=== PATIENT | male | born 1945 | race Caucasian/White ===

== ENCOUNTER → 2020-06-23 11:42 | Outpatient (BNVA) | payer OTHER, SELFPAY | PROVIDERS: PCP Emergency Medicine Emergency Medical Services; Visit Provider Surgery | DX: Z11.59 Encounter for screening for other viral diseases (principal); D50.9 Iron deficiency anemia, unspecified; Z86.010 Personal history of colon polyps | CPT/HCPCS: 87635 ==

== ENCOUNTER 2020-06-29 06:19 | Day surgery (SDC) | payer OTHER, SELFPAY ==
[2020-06-28 09:09] VITALS: BMI 29.4
--- NOTE | 2020-06-29 06:36 | W.PM.OPSUD ---
Surgery/Procedure H&P Update DATE OF PROCEDURE: June 29, 2020 DATE H&P PERFORMED: 06/14/20 H&P UPDATE INFORMATION: I have reviewed H&P completed within last 30 days, I have examined patient prior to procedure and No changes to prior documentation PREOP DIAGNOSIS: Iron deficiency anemia PRIMARY INDICATION FOR PROCEDURE: The same PLANNED PROCEDURE: Operation Date: 06/29/20 07:00 Proposed Procedures p EGD 21265 [id number] D50.9 Z86.010(Not Applicable) - Kurt Jackson MD s Colonoscopy(Not Applicable) - Kurt Jackson MD
[2020-06-29 06:40] VITALS: BP 146/77; PULSE 87; RESP 18; TEMP 36.6; O2SAT 99
[2020-06-29 06:46] LABS: Glucose Point of Care 81 mg/dL (70-110)
[2020-06-29] MEDS: sodium chloride 0.9% 1,000 ML 30 ML IV (06:47)
--- NOTE | 2020-06-29 06:53 | ANES.PREANE2 ---
Pre-Anesthetic Assessment Pre-Anesthetic Assessment: Height/Weight: Height 1.7 m Weight 85.275 kg Temp Pulse Resp BP Pulse Ox 98 F 87 18 146/77 99 06/29/20 06:40 06/29/20 06:40 06/29/20 06:40 06/29/20 06:40 06/29/20 06:40 Preop Diagnosis: Iron deficiency anemia Proposed Procedure: Operation Date: 06/29/20 07:00 Proposed Procedures p EGD 07672 98291 D50.9 Z86.010(Not Applicable) - Kurt Jackson MD s Colonoscopy(Not Applicable) - Kurt Jackson MD Was Beta Yohannes taken within 24 hours: Yes Last intake: Intake Last Liquid Date 06/28/20 Last Liquid Time 18:00 Last Solid Date 06/27/20 Last Solid Time 18:00 Social: Social History: No alcohol and No tobacco Airway: Submandibular: WNL Cervical ROM: WNL MP: 3 (full amezcua) History/ROS: No significant history except as noted Pulmonary: Pulmonary: Sleep apnea (CPAP) CV/HEM: CV/HEM: CAD (CABG X4 12 years ago) and HTN Comments: denies SOB and denies CP : : None reported Hepatic: Hepatic: None reported GI: GI: GERD (omeprazole) Metabolic: Metabolic: DM and Hyperlipidemia Musc/skel: Musc/skel: None reported Neuropsych: Neuropsych: None reported Anesthetic Plan: ASA status: 2 Anesthesia: Anesthesia Evaluation and MAC Risk of > 500 ml blood loss (7ml/kg in children): No Meds/Allergies Current Medications: Current Medications Generic Name Dose Route Start Last Admin Trade Name Albinq PRN Reason Stop Dose Admin Sodium Chloride 1,000 mls @ 30 ml s/hr 06/29/20 06:00 06/29/20 06:47 Sodium Chloride 0.9% IV 30 mls/hr .Q24H ELISABETH Administration PFSH Anesthesia PFSH: Family History Denies family history of Anesthesia complication Bleeding disorder Social History Smoking and tobacco status: never smoked Alcohol intake: never Data Anesthesia Other Labs: Laboratory Results - last 48 hr 06/29/20 06:39 POC Glucose 81 Cardiac Studies: No Data to Display
[2020-06-29 07:31] VITALS: BP 105/55; PULSE 55; RESP 18; TEMP 36.3; O2SAT 100
[2020-06-29 07:46] VITALS: BP 105/59; RESP 18; O2SAT 98
--- NOTE | 2020-06-29 13:36 | ANE.PACU2 ---
Inpatient post-anesthesia follow up: Airway intact: Yes Vital signs: Temperature 97.3 F Pulse Rate 55 Respiratory Rate 18 Blood Pressure 105/59 Pulse Oximetry 98 Oxygen Delivery Me thod Room Air Oxygen Flow Rate Fraction of Inspir ed Oxygen Hydration adequate: Yes Nausea and vomiting: No Pain level: 2 Mental status: Baseline
== END 2020-06-29 08:00 | disposition home or self-care (01) ==
PROVIDERS: PCP Emergency Medicine Emergency Medical Services; Visit Provider Surgery
PROC: 0DJ08ZZ Inspection of Upper Intestinal Tract, Via Natural or Artificial Opening Endoscopic (ICD-10-PCS; CPT 43235; principal; 2020-06-29 07:00)
PROC: 0DJD8ZZ Inspection of Lower Intestinal Tract, Via Natural or Artificial Opening Endoscopic (ICD-10-PCS; CPT 45378; 2020-06-29 07:00)
DX: D50.9 Iron deficiency anemia, unspecified (principal); K57.30 Diverticulosis of large intestine without perforation or abscess without bleeding; K31.7 Polyp of stomach and duodenum; K29.00 Acute gastritis without bleeding; G47.30 Sleep apnea, unspecified; I25.810 Atherosclerosis of coronary artery bypass graft(s) without angina pectoris; I10 Essential (primary) hypertension; K21.9 Gastro-esophageal reflux disease without esophagitis; E11.9 Type 2 diabetes mellitus without complications; E78.5 Hyperlipidemia, unspecified; Z79.82 Long term (current) use of aspirin; Z79.4 Long term (current) use of insulin
CPT/HCPCS: 12345; 36416; 43251; 45378; 82962; 88305; J2704; J7030

== ENCOUNTER 2021-02-09 08:14 | Inpatient (IN) | payer OTHER, MEDICARE, SELFPAY ==
[2021-02-09] VITALS (24 sets, daily range): BP systolic 95–116; BP diastolic 57–73; PULSE 72–90; RESP 18–29; TEMP 36.6–36.9; O2SAT 92–99; BMI 25.9
--- NOTE | 2021-02-09 08:49 | ECG_ITS ---
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 Measurements Intervals [place] Rate: 86 P: 55 ME: 320 QRS: 59 QRSD: 97 T: 180 QT: 394 QTc: 473 Interpretive Statements SINUS RHYTHM WITH FIRST DEGREE AV BLOCK WITH FREQUENT VENTRICULAR PREMATURE COMPLEXES MARKED ST DEPRESSION, CONSIDER SUBENDOCARDIAL INJURY [0.2+ mV ST DEPRESSION] Diffuse nonspecific ST-T changes Compared to ECG 12/03/2017 12:13:51 Ventricular premature complex(es) now present ST (T wave) deviation now present Sinus tachycardia no longer present T-wave abnormality no longer present Electronically Signed On 02-09-2021 22:51:06 CDT by Artur Orosco M.D. [id number]
--- NOTE | 2021-02-09 08:49 | XR_ITS ---
WS: [id number] Portable AP upright chest, 02/09/2021 Clinical Data: CP Comparison: PA and lateral chest, 12/03/2017. Findings: There is scarring at the left costophrenic angle unchanged. No nodules, masses or effusions are seen. The heart is at the upper limits of normal. No pneumonia or pneumothorax is present. Midli ne sternotomy sutures are present. The aortic arch shows calcification and tortuosity. Monitor leads are on the chest wall. XR/XR chest 1V portable [id number] Impression: 1. Atherosclerosis and cardiomegaly. 2. Unchanged scarring at left costophrenic angle.
--- NOTE | 2021-02-09 08:50 | ED_ITS ---
HPI - Chest Pain General: Chief Complaint: Chest Pain Stated Complaint: N/V WEAKNESS, VERY PALE Time Seen by Provider: 02/09/21 08:46 History of Present Illness: HPI narrative: This patient is a 76-year-old male who presents to the emergency department with complaint of atypical type chest pain issues. Patient has a history of coronary artery disease and had a quadruple bypass 15 years ago. [facility] Patient's daughter and his grandson had argument 3 days ago patient got upset that is when he started having chest pain. Patient states that it is continued and has not relieved. Will do medical evaluation treat as needed complaint: chest pain Pertinent past history: coronary artery disease and CABG Onset (ago): day(s) (3) Timing of current episode: episodic Prior episodes: Yes Associated symptoms: Deny abdominal pain, dyspnea, fever(s), nausea, palpitations or vomiting Review of Systems General: Reports: 10 or more systems reviewed and unremarkable except in HPI and below Const: Denies: fever(s), chills, body aches or fatigue Eyes: Denies: change in vision or blurry vision ENMT: Denies: throat pain, hoarseness or mouth pain Card: Reports: chest pain; Denies: palpitations, irregular heart rhythm, edema, swelling of feet/ankles or lightheadedness Resp: Denies: dyspnea, productive cough, non-productive cough, wheezing or pain on inspiration GI: Denies: abdominal pain, nausea or vomiting : Denies: flank pain, dysuria, urinary frequency, urinary urgency or urinary hesitancy Musc: Denies: neck pain, back pain, extremity pain, extremity swelling, joint pain, joint swelling, joint redness, joint warmth or limited range of motion Skin/Breast: Denies: rash, pruritus, erythema or skin tenderness Neuro: Denies: headache(s), numbness in extremities or weakness in extremities Psych: Denies: anxiety or depression PFSH ED PFSH: Family History Denies family history of Anesthesia complication Bleeding disorder Social History Smoking and tobacco status: never smoked Alcohol intake: never Physical Exam Const: COMMON NORMALS: no acute distress, average body habitus, patient oriented x3, no limitations, healthy appearing, alert and well nourished HENMT: COMMON NORMALS: normocephalic, atraumatic, hearing grossly normal bilaterally, external ears normal, EAC's normal, TM's normal bilaterally, Normal external nose present, Normal nasal mucous membranes and turbinates present, moist oral mucous membranes, oropharynx normal, dentition normal and gingiva normal HEAD & SCALP: normocephalic and atraumatic NOSE: Normal external nose present and Normal nasal mucous membranes and turbinates present EXTERNAL EAR: Yes external ears normal EXTERNAL AUDITORY CANAL: EAC's normal TYMPANIC MEMBRANE: TM's normal bilaterally Neck/C-Spine: COMMON NORMALS: full ROM, no lymphadenopathy, supple, no meningeal signs, no JVD, Thyroid normal and No carotid bruits THYROID: Thyroid normal Chest: COMMONS NORMALS: normal inspection of the chest, normal palpation of entire chest wall, normal inspection of the breasts and normal palpation of the breasts Breast/axilla inspection: Yes normal inspection of the breasts BREAST/AXILLA PALPATION: Yes normal palpation of the breasts Resp: COMMON NORMALS: normal respiratory effort, No retractions, No use of accessory muscles, clear to auscultation bilaterally and percussion normal AUSCULTATION: clear to auscultation bilaterally PERCUSSION: percussion normal Cardio: COMMON NORMALS: no JVD, regular rate, regular rhythm, S1 normal heart sound present, S2 normal heart sound present, No gallops present (Cardio), No clicks present (Cardio), No murmurs present (Cardio), No rub (Cardio) and Peripheral pulses 2+ throughout RATE: regular rate RHYTHM: regular rhythm HEART SOUNDS: S1 normal heart sound present and S2 normal heart sound present PERIPHERAL PULSES: Peripheral pulses 2+ throughout GI: COMMON NORMALS: Normal to inspection, nondistended, normoactive bowel sounds present, Soft to palpation, non-tender, No hepatosplenomegaly present, no masses and no bruits PALPATION: Yes Soft to palpation and Yes No hepatosplenomegaly present : COMMON NORMALS: Yes no CVA tenderness BLADDER/KIDNEY EXAM: Yes no CVA tenderness Back/Pelvis: COMMON NORMALS: no CVA tenderness, thoracic and lumbar spine normal to inspection, no thoracic nor lumbar tenderness, thoraco-lumbar ROM normal and straight leg raise negative bilaterally Extremity: COMMON NORMALS: normal to inspection, full ROM, capillary refill normal, no joint enlargement, no clubbing, cyanosis or edema, no calf tenderness and no pedal edema Neuro: COMMON NORMALS: patient oriented x3 SENSORIUM/ORIENTATION: Yes alert MENINGEAL SIGNS: Yes no meningeal signs Course Reevaluation(s): Reevaluation #1: I did discuss at length with patient and family. They state understanding and agreeable for admission to hospital. Patient states chest pain is improved Time: 10:13 Consultations: Consultation #1: I did discuss leg with Dr. Barry real. She has agreed to see the patient as a consult. We did discuss patient's low platelet count. But she still recommends patient receive heparin. Time: 10:12 Consultation #2: I did discuss at length with Dr. Barnes hospitalist. He is agreed to admit the patient to the hospital he will see patient write additional Time: 10:25 Vital Signs: Vital signs: Vital Signs Temperature 98.5 F 02/09/21 08:34 Pulse Rate 85 02/09/21 10:00 Respiratory Rate 18 02/09/21 10:00 Blood Pressure 108/67 02/09/21 10:00 Pulse Oximetry 96 02/09/21 10:00 MDM - Chest Pain MDM Narrative: Medical decision making narrative: This patient is a 76-year-old male who presents to the emergency department with complaint of atypical type chest pain issues. Patient has a history of coronary artery disease and had a quadruple bypass 15 years ago. [facility] Patient's daughter and his grandson had argument 3 days ago patient got upset that is when he started having chest pain. Patient states that it is continued and has not relieved. I did discuss leg with Dr. Barry real. She has agreed to see the patient as a consult. We did discuss patient's low platelet count. But she still recommends patient receive heparin. I did discuss at length with Dr. Barnes hospitalist. He is agreed to admit the patient to the hospital he will see patient write additional Lab Data: Labs: Lab Results 02/09/21 02/09/21 02/09/21 Range/Units 09:15 09:15 09:15 WBC 10.2 H (4.0-10.0) 10^3/ uL RBC 3.58 L (4.1-5.3) 10^6/u L Hgb 11.0 L (11.7-16.6) g/dL Hct 34.2 L (42.0-52.0) % MCV 95.5 H (80-94) fL MCH 30.7 (28.0-34.0) pg MCHC 32.2 (30.0-36.0) g/dL RDW 13.0 (12.1-15.1) % Plt Count 56 L (130-400) 10^3/c mm MPV 12.9 H (7.4-10.4) fL Neut % (Auto) 93.4 % Lymph % (Auto) 4.4 % [place] % (Auto) 1.9 % Eos % (Auto) 0.0 % Baso % (Auto) 0.2 % Neut # (Auto) 9.50 H (1.8-7.7) 10^3/u L Lymph # (Auto) 0.5 L (0.8-4.8) 10^3/u L [place] # (Auto) 0.2 (0.2-0.9) 10^3/u L Eos # (Auto) 0.0 (0.0-0.8) 10^3/u L Baso # (Auto) 0.0 (0.0-0.1) 10^3/u L Nucleated RBC % (a uto) 0 % Nucleated RBCs # 0.0 /100WBC PT (12.1-14.9) SECO NDS INR (0.8-1.2) APTT (23.9-36.7) SECO NDS Sodium 137 (136-145) mmol/L Potassium 4.9 (3.5-5.1) mmol/L Chloride 100 (98-107) mmol/L Carbon Dioxide 16 L (22-29) mmol/L Anion Gap 25.9 H (5-19) BUN 36 H (8-23) mg/dL Creatinine 1.3 H (0.7-1.2) mg/dL GFR Calculation Not Reportable Glucose 345 H (65-115) mg/dL Calculated Osmolal ity 306 H (285-295) mOsm/k g Calcium 9.1 (8.5-10.5) mg/dL Total Bilirubin 0.3 (0.15-1.2) mg/dL AST 42 H (0-40) U/L ALT 13 (0-41) U/L Alkaline Phosphata se 54 (40-130) IU/L Troponin T Baselin e 652 H* (0-15) ng/L NT-Pro-B Natriuret Pep 2849 H (0-450) pg/mL Total Protein 6.6 (6.6-8.7) g/dL Albumin 4.4 (3.5-5.2) g/dL Globulin 2.2 (1.3-4.6) g/dL 02/09/21 Range/Units 09:35 WBC (4.0-10.0) 10^3/ uL RBC (4.1-5.3) 10^6/u L Hgb (11.7-16.6) g/dL Hct (42.0-52.0) % MCV (80-94) fL MCH (28.0-34.0) pg MCHC (30.0-36.0) g/dL RDW (12.1-15.1) % Plt Count (130-400) 10^3/c mm MPV (7.4-10.4) fL Neut % (Auto) % Lymph % (Auto) % [place] % (Auto) % Eos % (Auto) % Baso % (Auto) % Neut # (Auto) (1.8-7.7) 10^3/u L Lymph # (Auto) (0.8-4.8) 10^3/u L [place] # (Auto) (0.2-0.9) 10^3/u L Eos # (Auto) (0.0-0.8) 10^3/u L Baso # (Auto) (0.0-0.1) 10^3/u L Nucleated RBC % (a uto) % Nucleated RBCs # /100WBC PT 13.90 (12.1-14.9) SECO NDS INR 1.04 (0.8-1.2) APTT 31.5 (23.9-36.7) SECO NDS Sodium (136-145) mmol/L Potassium (3.5-5.1) mmol/L Chloride (98-107) mmol/L Carbon Dioxide (22-29) mmol/L Anion Gap (5-19) BUN (8-23) mg/dL Creatinine (0.7-1.2) mg/dL GFR Calculation Glucose (65-115) mg/dL Calculated Osmolal ity (285-295) mOsm/k g Calcium (8.5-10.5) mg/dL Total Bilirubin (0.15-1.2) mg/dL AST (0-40) U/L ALT (0-41) U/L Alkaline Phosphata se (40-130) IU/L Troponin T Baselin e (0-15) ng/L NT-Pro-B Natriuret Pep (0-450) pg/mL Total Protein (6.6-8.7) g/dL Albumin (3.5-5.2) g/dL Globulin (1.3-4.6) g/dL Imaging Data^: CXR: Attestation: I personally reviewed and interpreted this imaging study as follows: Radiologist's impression: Impression: 1. Atherosclerosis and cardiomegaly. 2. Unchanged scarring at left costophrenic angle. EKG Data^: EKG 1: Attestation: I personally reviewed and interpreted this EKG as follows: EKG interpretation date: 02/09/21 EKG interpretation time: 08:54 Prior EKG tracings: not available for review Ischemic changes: non-specific ST-T wave changes Interpretation: Sinus rhythm with a first-degree AV block with PVCs. Nonspecific ST changes. Abnormal EKG heart rate 86 Discharge Plan Discharge Patient Disposition: Admitted As Inpatient Clinical Impression: Non-STEMI (non-ST elevated myocardial infarction), Thrombocytopenia Condition: Stable Coding Level of Care Code ED [employer] Professor for Chg Fwd Exam Comprehensive
[2021-02-09] MEDS: aspirin 81 mg Chew Tablet 324 MG PO (09:19)
[2021-02-09 09:25] LABS: Basophils % 0.2 %; Hematocrit 34.2 % (42.0-52.0); Lymphocytes # 0.5 10^3/uL (0.8-4.8); Lymphocytes % 4.4 %; Mean Corpuscular HGB Conc 32.2 g/dL (30.0-36.0); Mean Corpuscular Hemoglobin 30.7 pg (28.0-34.0); Mean Corpuscular Volume 95.5 fL (80-94); Mean Platelet Volume 12.9 fL (7.4-10.4); Monocytes # 0.2 10^3/uL (0.2-0.9); Monocytes % 1.9 %; Neutrophils % 93.4 %; Nucleated Red Blood Cells % 0 %; Platelet Count 56 10^3/cmm (130-400); Red Blood Count 3.58 10^6/uL (4.1-5.3); White Blood Count 10.2 10^3/uL (4.0-10.0)
--- NOTE | 2021-02-09 09:42 | PC.PHAR ---
pt states his daughter takes care of his medications-pts daughter states the pt use to be on insulin but hasnt been on it for 6 months
[2021-02-09 09:49] LABS: Alanine Aminotransferase 13 U/L (0-41); Albumin Level 4.4 g/dL (3.5-5.2); Alkaline Phosphatase 54 IU/L (40-130); Blood Urea Nitrogen 36 mg/dL (8-23); Calcium 9.1 mg/dL (8.5-10.5); Carbon Dioxide 16 mmol/L (22-29); Chloride 100 mmol/L (98-107); Globulin 2.2 g/dL (1.3-4.6); Glucose 345 mg/dL (65-115); NT Pro B Type Natriuretic Pept 2849 pg/mL (0-450); Osmolality Calculated 306 mOsm/kg (285-295); Sodium 137 mmol/L (136-145); Total Bilirubin 0.3 mg/dL (0.15-1.2); Total Protein 6.6 g/dL (6.6-8.7)
[2021-02-09 09:53] LABS: Creatinine Clr Calc Pharmacy 46.9054
[2021-02-09 09:54] LABS: Anion Gap 25.9 (5-19); Aspartate Amino Transferase 42 U/L (0-40); Potassium 4.9 mmol/L (3.5-5.1)
[2021-02-09 09:58] LABS: INR 1.04 (0.8-1.2)
[2021-02-09 09:59] LABS: Partial Thromboplastin Time 31.5 SECONDS (23.9-36.7)
[2021-02-09 10:05] LABS: Troponin(5th) Baseline 652 ng/L (0-15)
[2021-02-09 10:44] LABS: Basophils % 0.2 %; Hematocrit 34.4 % (42.0-52.0); Hemoglobin 10.8 g/dL (11.7-16.6); Lymphocytes # 0.5 10^3/uL (0.8-4.8); Mean Corpuscular HGB Conc 31.4 g/dL (30.0-36.0); Mean Corpuscular Hemoglobin 30.3 pg (28.0-34.0); Mean Corpuscular Volume 96.6 fL (80-94); Mean Platelet Volume 11.1 fL (7.4-10.4); Monocytes # 0.3 10^3/uL (0.2-0.9); Monocytes % 2.6 %; Neutrophils # 9.29 10^3/uL (1.8-7.7); Neutrophils % 91.9 %; Nucleated Red Blood Cells % 0 %; Platelet Count 205 10^3/cmm (130-400); Red Blood Count 3.56 10^6/uL (4.1-5.3); Red Cell Distribution Width 13.1 % (12.1-15.1); White Blood Count 10.1 10^3/uL (4.0-10.0)
--- NOTE | 2021-02-09 10:49 | ECG_ITS ---
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 Measurements Intervals [place] Rate: 85 P: 42 MA: 338 QRS: 48 QRSD: 116 T: 161 QT: 387 QTc: 461 Interpretive Statements SINUS RHYTHM WITH FIRST DEGREE AV BLOCK MODERATE INTRAVENTRICULAR CONDUCTION DELAY [105+ ms QRS DURATION, 80+ ms Q/S IN V1/V2, NO Q AND 60+ ms R IN I/aVL/V5/V6] ST DEVIATION AND MODERATE T-WAVE ABNORMALITY, CONSIDER Warren- LATERAL ISCHEMIA [-0.1+ mV T WAVE IN I/aVL/V5/V6] Compared to ECG 02/09/2021 08:54:13 Intraventricular conduction delay now present T-wave abnormality now present Possible ischemia now present Ventricular premature complex(es) no longer present ST (T wave) deviation no longer present Electronically Signed On 02-09-2021 23:01:45 CDT by Artur Orosco M.D. [id number]
[2021-02-09 11:13] LABS: Troponin 5 2HR 931.1 ng/L (0-15); Troponin 5 2HR Delta 279.1 ABS# (0-10)
[2021-02-09] MEDS: heparin 5,000 unit/mL INJ 1 mL 4000 UNIT IVP (11:51)
--- NOTE | 2021-02-09 12:35 | P.CONIM_ITS ---
Providers/Reason For Consult Consulting Physician/Specialty*: Dr. Reddy, cardiology Reason for Consult*: Non-ST elevation [place] Requesting Physician: Dr. Holguin Primary Care Provider: Huan De La Rosa DO History of Present Illness History of Present Illness Milo Echeverira is a 76 year old male past medical history of CAD s/p CABG x4 about 16 years ago, history of right carotid endarterectomy by Dr. Keller in 12/2017, left proximal internal carotid artery stenosis about 54% (10 October 2017 ), hypertension, diabetes mellitus, gastritis and gastric polyps and diverticulosis on EGD and colonoscopy done in June 2020. He presented with complaints of chest discomfort. Patient is accompanied by his daughter and apparently there was an argument between his daughter and his grandson 2 to 3 days back and since then patient has been having chest discomfort on and off. On further que stioning he does tell me that even prior to that he was having some minor episodes of chest pain but in the last 2 days these episodes have really worsened. He complains of nausea with multiple episodes of vomiting last night. Pain is retrosternal to epigastric in location, dull in nature without any significant radiation. He was short of breath at the time of the event. On arrival to the ER WBC 10.2, hemoglobin 11 and platelets 56--> 205 on recheck. BUN 36, creatinine 1.3, potassium 4.9. Baseline troponin T of 652 which increased at 2 hours to 931. NT proBNP of 2849. EKG showed sinus rhythm with 1st degree AV block with frequent PVC's. ST depression and T wave inversion/biphasic T wave noted in I, aVL, II, III, aVF, V2-V6. Review of Systems General: Reports: 10 or more systems reviewed and unremarkable except in HPI and below Const: Denies: fever(s), chills, body aches or fatigue Eyes: Denies: change in vision ENMT: Denies: change in hearing or epistaxis Card: Reports: chest pain; Denies: palpitations, irregular heart rhythm, edema, swelling of feet/ankles or lightheadedness Resp: Denies: dyspnea, productive cough, non-productive cough, wheezing or pain on inspiration GI: Denies: abdominal pain, nausea, vomiting, hematochezia or melena : Denies: dysuria, urinary frequency or hematuria Musc: Denies: back pain, extremity pain or extremity swelling Skin/Breast: Denies: rash, pruritus, erythema or skin tenderness Neuro: Denies: headache(s), numbness in extremities or weakness in extremities Psych: Denies: anxiety or depression Omar/Lymph: Denies: petechiae or purpura Meds/Allergies Home Medications and Allergies Home Medications Medication Instructions Recorded Confirmed Last Taken Type amlodipine 10 mg tablet 10 mg PO QAM 06/14/20 02/09/21 02/09/21 07:15 History atorvastatin 80 mg tablet 40 mg PO BEDTIME 06/14/20 02/09/21 02/08/21 History cholecalciferol (vitamin D3) 25 25 mcg PO QAM 06/14/20 02/09/21 02/09/21 07:15 History mcg (1,000 unit) capsule lisinopril 40 mg tablet 20 mg PO BID tab 06/14/20 02/09/21 02/09/21 07:15 History metformin 1,000 mg tablet 1,000 mg PO BID tab 06/14/20 02/09/21 02/09/21 07:15 History mirtazapine 30 mg tablet 15 mg PO BEDTIME tab 06/14/20 02/09/21 02/08/21 History omega-3 fatty acids 1,000 mg 1,000 mg PO BEDTIME 06/14/20 02/09/21 02/08/21 History capsule terazosin 10 mg capsule 10 mg PO BEDTIME 06/14/20 02/09/21 02/08/21 History thiamine HCl (vitamin B1) 100 mg 100 mg PO QAM 06/14/20 02/09/21 02/09/21 07:15 History tablet ferrous sulfate 325 mg PO BEDTIME 06/25/20 02/09/21 02/08/21 History aspirin 325 mg PO BEDTIME 02/09/21 02/09/21 02/08/21 History docusate sodium [Colace] 100 mg PO BEDTIME PRN 02/09/21 02/09/21 Unknown History hydrochlorothiazide 25 mg PO QAM 02/09/21 02/09/21 02/09/21 07:15 History metoprolol tartrate 50 mg PO BID 02/09/21 02/09/21 02/09/21 07:15 History omeprazole [Prilosec] 40 mg PO QAM 02/09/21 02/09/21 02/09/21 07:15 History Allergies Allergy/AdvReac Type Severity Reaction Status Date / Time No Known Allergies Allergy Verified 02/09/21 09:39 PFSH Acute PFSH: Medical History BPH (benign prostatic hyperplasia) Carotid artery disease Coronary artery disease Diabetes GERD (gastroesophageal reflux disease) History of anemia History of prostate cancer Hyperlipidemia Hypertension Insomnia Sleep apnea Surgical History History of heart bypass surgery History of hernia repair 2x History of neck surgery Left carotid endarterectomy Family History Denies family history of Anesthesia complication Bleeding disorder Social History Smoking and tobacco status: never smoked Alcohol intake: never Vitals/I&O/Wt Last Vital Signs Temp 98.5 F 02/09/21 08:34 Pulse 85 02/09/21 10:00 Resp 18 02/09/21 10:00 BP 108/67 02/09/21 10:00 Pulse Ox 96 02/09/21 10:00 Weight last 48 hrs Weight 165 lb 8 oz Physical Exam Narrative: EXAM NARRATIVE: GENERAL: elderly frail appearing gentleman in no acute distress HEENT: Pupils equal round reactive to light. No pallor or icterus. NECK: No JVD No carotid bruit. CARDIOVASCULAR SYSTEM: S1-S2 regular. No S3 or S4 present. No murmur rubs or gallops. RESPIRATORY SYSTEM: Chest clear to auscultation except at bases. No wheezes, oxxasional rales. ABDOMEN: Soft, nontender and nondistended. Normal bowel sounds present. EXTREMITIES: No cyanosis or clubbing. No edema. COLLATOR HAND: Patient is alert oriented ?3. No focal neurological deficits. SKIN: Normal turgor and temperature. PSYCH: Normal insight and judgment. A&P Assessment and plan (1) Non-STEMI (non-ST elevated myocardial infarction): continue ASA, plavix, statin, metoprolol and heparin. -Risks and benefits were discussed with the patients. Alternate management options were discussed with the patient as well. Possible complications were reviewed with the patient as well. Plan is to proceed for the procedure to pink. Status: Acute (2) Thrombocytopenia: Likley lab error; normal on repeat check Status: Acute (3) Hypertension: Status: Acute Qualifiers: Hypertension type: essential hypertension Qualified Code(s): I10 - Essential (primary) hypertension (4) Diabetes: Status: Acute Qualifiers: Diabetes mellitus type: type 2 Diabetes mellitus penitentiary insulin use: without keno terminal operator use Additional A&P Information SARAH Mild leucocytosis Iron deficiency anemia Carotid artery disease Hyperlipidemia Thank you for allowing me to participate in patient's care. Please feel free to call with questions or concerns. Consult Attestations Time Spent in Patient Care: Greater than 35 minutes (>than 50% of time spent in counselling and/or direct pt care on unit) . Coding Level of Care Code Acute Joint Setter for Bernard Fwd Diagnoses Non-STEMI (non-ST elevated myocardial infarction) I21.4 Thrombocytopenia D69.6 Hypertension I10 Hypertension type: essential hypertension Diabetes E11.9 Diabetes mellitus type: type 2 Diabetes mellitus penitentiary insulin use: without penitentiary use
--- NOTE | 2021-02-09 12:45 | USCV_ITS ---
Milo Echeverria Age: 76 Gender: M : 1945 Exam Date: 02/09/2021 15:50 Ordering Phys: Kimber Reddy MD ([email or web address]) Technologist: Exam Location[place] [facility] [place]: NSTEMI BP: 104 / 64 HR: 56 Rhythm: Sinus Technical Quality: Adequate MEASUREMENTS (Male / Female) Normal Values 2D ECHO LV Diastolic Diameter PLAX 4.5 cm 4.2 - 5.9 / 3.9 - 5.3 cm LV Systolic Diameter PLAX 4.4 cm IVS Diastolic Thickness 1.2 cm 0.6 - 1.0 / 0.6 - 0.9 cm IVS Systolic Thickness 1.2 cm LVPW Diastolic Thickness 0.9 cm 0.6 - 1.0 / 0.6 - 0.9 cm LVPW Systolic Thickness 1.0 cm LVOT Diameter 2.1 cm LV Ejection Fraction 2D Teich 9.7 % LV Ejection Fraction MOD 2C 27.6 % LV Ejection Fraction 2C AL 32.3 % LA Diameter 3.9 cm LA Width 4.7 cm LA Height 5.6 cm RA Width 3.8 cm RA Height 5.7 cm DOPPLER AV Peak Velocity 114.0 cm/s LVOT Peak Velocity 91.0 cm/s AV Area Cont Eq vti 2.6 cm squared AV Area Cont Eq pk 2.7 cm squared MV Area PHT 5.0 cm squared Mitral E to A Ratio 2.8 MV E' Velocity 56.5 cm/s Mitral E to MV E' Ratio 9.7 Mitral E to LV E' Lateral Ratio 7.2 Mitral E to LV E' Septal Ratio 14.7 TR Peak Velocity 120.0 cm/s TR Peak Gradient 5.8 mmHg PV Peak Velocity 51.0 cm/s FINDINGS Left Ventricle Mildly increased left ventricular cavity size. Moderately decreased left ventricular systolic function. Left ventricular ejection fraction is estimated at 30 %. There is global hypokinesis with severe hypokinesis of basal to mid anteroseptal, basal to mid inferoseptal, basal to mid inferior hernandez. Abnormal diastolic function. Right Ventricle Normal right ventricular size and systolic function. Right Atrium Normal right atrial size. Left Atrium Mildly increased left atrial size. Mitral Valve Structurally normal mitral valve. No mitral valve stenosis. At least moderate mitral valve regurgitation. Aortic Valve Aortic valve not well visualized. No aortic valve stenosis. No aortic valve regurgitation. Tricuspid Valve Structurally normal tricuspid valve. Mild tricuspid valve regurgitation. Pulmonic Valve Pulmonic valve not well visualized. No pulmonary valve stenosis. Trace pulmonary valve regurgitation. Pericardium No pericardial effusion. Aorta Normal-sized aortic root. CONCLUSIONS 1. This is a technically difficult study with poor ultrasonic windows. 2. Mildly increased left ventricular cavity size. Moderately decreased left ventricular systolic function. Left ventricular ejection fraction is estimated at 30 %. There is global hypokinesis with severe hypokinesis of basal to mid anteroseptal, basal to mid inferoseptal, basal to mid inferior hernandez. Abnormal diastolic function. 3. At least moderate mitral valve regurgitation. 4. No prior similar studies to compare. Kimber Reddy MD (Electronically Signed) Final Date: 09 February 2021 18:36 S
[2021-02-09] MEDS: clopidogrel 300 mg Tablet PO (13:01)
--- NOTE | 2021-02-09 13:14 | P.HP_ITS ---
Providers/Chief Complaint Primary Care Provider: Huan De La Rosa DO Chief Complaint: N/V WEAKNESS, VERY PALE History of Present Illness Milo Echeverria is a 76 year old male who presents to the hospital with complaints of some chest discomfort, substernal felt as a dull ache without radiation occurring last night. He became nauseated and had several episodes of vomiting. He was short of breath at the time of the event and continues to be a little bit short of breath with any exertion such as going to the bathroom in the emergency department. He denies any active chest discomfort, and reports he is feeling better. He reports a past history of coronary artery bypass grafting greater than 10 years ago and no procedures following this. He denies any history of Covid. He has not been vaccinated. He has had no exposures. Review of Systems General: Reports: 10 or more systems reviewed and unremarkable except in HPI and below Const: Denies: fever(s) or chills Eyes: Denies: change in vision ENMT: Reports: other (Hard of hearing) Card: Reports: chest pain Resp: Reports: dyspnea GI: Reports: nausea and vomiting; Denies: abdominal pain : Denies: flank pain Musc: Denies: neck pain Skin/Breast: Denies: rash Neuro: Denies: headache(s) Psych: Denies: anxiety or depression Endo: Denies: polyuria Omar/Lymph: Denies: easy bruising All/Imm: Denies: urticaria Medications/Allergies Home Medications Medication Instructions Recorded Confirmed Last Taken Type amlodipine 10 mg tablet 10 mg PO QAM 06/14/20 02/09/21 02/09/21 07:15 History atorvastatin 80 mg tablet 40 mg PO BEDTIME 06/14/20 02/09/21 02/08/21 History cholecalciferol (vitamin D3) 25 25 mcg PO QAM 06/14/20 02/09/21 02/09/21 07:15 History mcg (1,000 unit) capsule lisinopril 40 mg tablet 20 mg PO BID tab 06/14/20 02/09/21 02/09/21 07:15 History metformin 1,000 mg tablet 1,000 mg PO BID tab 06/14/20 02/09/21 02/09/21 07:15 History mirtazapine 30 mg tablet 15 mg PO BEDTIME tab 06/14/20 02/09/21 02/08/21 History omega-3 fatty acids 1,000 mg 1,000 mg PO BEDTIME 06/14/20 02/09/21 02/08/21 History capsule terazosin 10 mg capsule 10 mg PO BEDTIME 06/14/20 02/09/21 02/08/21 History thiamine HCl (vitamin B1) 100 mg 100 mg PO QAM 06/14/20 02/09/21 02/09/21 07:15 History tablet ferrous sulfate 325 mg PO BEDTIME 06/25/20 02/09/21 02/08/21 History aspirin 325 mg PO BEDTIME 02/09/21 02/09/21 02/08/21 History docusate sodium [Colace] 100 mg PO BEDTIME PRN 02/09/21 02/09/21 Unknown History hydrochlorothiazide 25 mg PO QAM 02/09/21 02/09/21 02/09/21 07:15 History metoprolol tartrate 50 mg PO BID 02/09/21 02/09/21 02/09/21 07:15 History omeprazole [Prilosec] 40 mg PO QAM 02/09/21 02/09/21 02/09/21 07:15 History Allergies Allergy/AdvReac Type Severity Reaction Status Date / Time No Known Allergies Allergy Verified 02/09/21 09:39 PFSH Acute PFSH: Medical History (Updated 02/09/21 @ 13:18 by Ethan Barnes MD) BPH (benign prostatic hyperplasia) Carotid artery disease Coronary artery disease Diabetes GERD (gastroesophageal reflux disease) History of anemia History of prostate cancer Hyperlipidemia Hypertension Insomnia Sleep apnea Surgical History (Updated 02/09/21 @ 13:18 by Ethan Barnes MD) History of heart bypass surgery History of hernia repair 2x History of neck surgery Left carotid endarterectomy Family History Denies family history of Anesthesia complication Bleeding disorder Social History Smoking and tobacco status: never smoked Alcohol intake: never Vitals/I&O/Wt Last Vital Signs Temp 98.5 F 02/09/21 08:34 Pulse 85 02/09/21 10:00 Resp 18 02/09/21 10:00 BP 108/67 02/09/21 10:00 Pulse Ox 96 02/09/21 10:00 Weight last 48 hrs Weight 75.07 kg Physical Exam Narrative: EXAM NARRATIVE: General exam is mild tachypnea HEENT: Atraumatic normocephalic. Oropharynx is clear. Neck is supple no lymphadenopathy or thyromegaly Cardiovascular regular rate and rhythm, no murmur Lungs clear. Diminished breath sounds are noted at the bases Abdomen is soft nontender with positive bowel sounds. No obvious organomegaly exam is deferred Extremities no cyanosis clubbing or edema, cap refill brisk Skin no rash Neuro no obvious focal deficits. Data : 02/09/21 10:36 02/09/21 09:15 Other data: EKG demonstrates flipped T waves V4 through 6 and laterally. Sinus rhythm, normal axis. Frequent PVCs. Intraventricular conduction delay. Chest x-ray demonstrates prior coronary artery bypass. Likely previous right rib fractures. Left lower lung scarring is noted. Original platelet count low but on repeat 205 Troponin 52 with repeat 931 BNP [id number] LFTs normal A&P Assessment and plan (1) Non-STEMI (non-ST elevated myocardial infarction): Admission. Significant elevation of troponin with significant delta. Heparinize Continue aspirin, Lipitor Continue beta-tatum Plavix load per cardiology Consider nitroglycerin ointment for any recurrent discomfort Cardiology consultation Echocardiogram Check TSH Status: Acute (2) Iron deficiency anemia: Close follow-up of anemia considering anticoagulation Status: Acute (3) Diabetes: Sliding scale insulin Status: Acute (4) Hypertension: Continue home medications with exception of hydrochlorothiazide which we will hold. We will also reduce CHEMO inhibitor dose. Status: Acute Additional A&P Information Full code Heparin drip will suffice for DVT prophylaxis. Attestations Medical Necessity Statement*: Will need greater than 2 midnight stay for evaluation of non-ST elevation myocardial infarction. Time Spent in Patient Care: Greater than 35 minutes Coding Level of Care Code Acute Stove Mechanic for Chg Fwd Diagnoses Non-STEMI (non-ST elevated myocardial infarction) I21.4 Iron deficiency anemia D50.9 Diabetes E11.9 Hypertension I10
[2021-02-09 13:21] LABS: Glucose Point of Care 319 mg/dL (70-110)
[2021-02-09] MEDS: heparin drip 25,000 UNIT/500 ML PREMIX 21.02 UNIT IV (13:51)
[2021-02-09 14:01] LABS: Thyroid Stimulating Hormone 0.98 uIU/mL (0.27-4.20)
--- NOTE | 2021-02-09 14:49 | ECG_ITS ---
[facility] Test Date: 2021-02-09 Pat Name: Milo Echeverria Department: Room: Gender: Male Lead Care Manager: : 1945 Requested By: Oscar Holguin Order Number: [id number] Elton MD: Artur Orosco M.D. Measurements Intervals [place] Rate: 86 P: 59 VT: 325 QRS: 65 QRSD: 97 T: 193 QT: 359 QTc: 431 Interpretive Statements SINUS RHYTHM WITH FIRST DEGREE AV BLOCK ST DEVIATION AND MODERATE T-WAVE ABNORMALITY, CONSIDER ROBERTA-LATERAL ISCHEMIA [-0.1+ mV T WAVE IN I/aVL/V5/V6] Compared to ECG 02/09/2021 11:32:09 Intraventricular conduction delay no longer present T-wave abnormality still present Possible ischemia still present Electronically Signed On 02-09-2021 23:03:49 CDT by Artur Orosco M.D. [id number]
[2021-02-09 16:20] LABS: Troponin 5 6HR 2936 ng/L (0-15); Troponin 5 6HR Delta 2284 ng/L (0-12)
--- NOTE | 2021-02-09 16:24 | PC.NURSE ---
received critical lab result from Oneyda in lab of 6 hour troponin 2936 and delta of 2284. I then called these criticals to Dr Molly SNYDER
--- NOTE | 2021-02-09 19:09 | PC.NURSE ---
care transferred to this nurse at 1909
[2021-02-09 21:41] LABS: Partial Thromboplastin Time 129.5 SECONDS (23.9-36.7)
[2021-02-09] MEDS: mirtazapine 15 mg Tablet PO (22:04)
[2021-02-09] MEDS: atorvastatin 40 mg Tablet PO (22:05)
[2021-02-09] MEDS: metoprolol tartrate 50 mg Tablet PO (22:05)
[2021-02-09] MEDS: terazosin 5 mg Capsule 10 MG PO (22:50)
[2021-02-09 22:51] LABS: Glucose Point of Care 226 mg/dL (70-110)
[2021-02-10] VITALS (10 sets, daily range): BP systolic 83–105; BP diastolic 53–58; PULSE 66–94; RESP 17–25; TEMP 36.4–37.3; O2SAT 91–96
[2021-02-10 06:04] LABS: Basophils % 0.2 %; Eosinophils % 0.1 %; Hematocrit 34.6 % (42.0-52.0); Hemoglobin 11.1 g/dL (11.7-16.6); Lymphocytes # 0.9 10^3/uL (0.8-4.8); Lymphocytes % 7.5 %; Mean Corpuscular HGB Conc 32.1 g/dL (30.0-36.0); Mean Corpuscular Hemoglobin 30.2 pg (28.0-34.0); Mean Platelet Volume 11.8 fL (7.4-10.4); Monocytes # 0.7 10^3/uL (0.2-0.9); Monocytes % 5.8 %; Neutrophils # 9.94 10^3/uL (1.8-7.7); Neutrophils % 86.1 %; Nucleated Red Blood Cells % 0 %; Platelet Count 211 10^3/cmm (130-400); Red Blood Count 3.68 10^6/uL (4.1-5.3); Red Cell Distribution Width 13.3 % (12.1-15.1); White Blood Count 11.6 10^3/uL (4.0-10.0)
[2021-02-10 06:22] LABS: Partial Thromboplastin Time 81.1 SECONDS (23.9-36.7)
[2021-02-10] MEDS: sodium chloride 0.9% 1,000 ML 50 ML IV (06:22)
[2021-02-10] MEDS: pantoprazole DR 40 mg Tablet PO (06:23)
[2021-02-10 06:25] LABS: Alanine Aminotransferase 28 U/L (0-41); Albumin Level 3.9 g/dL (3.5-5.2); Alkaline Phosphatase 54 IU/L (40-130); Anion Gap 20.6 (5-19); Aspartate Amino Transferase 248 U/L (0-40); Blood Urea Nitrogen 39 mg/dL (8-23); Calcium 9.1 mg/dL (8.5-10.5); Carbon Dioxide 20 mmol/L (22-29); Chloride 107 mmol/L (98-107); Globulin 2.4 g/dL (1.3-4.6); Glucose 222 mg/dL (65-115); Osmolality Calculated 312 mOsm/kg (285-295); Potassium 4.6 mmol/L (3.5-5.1); Sodium 143 mmol/L (136-145); Total Bilirubin 0.5 mg/dL (0.15-1.2); Total Protein 6.3 g/dL (6.6-8.7)
[2021-02-10 07:05] LABS: Glucose Point of Care 256 mg/dL (70-110)
[2021-02-10 07:18] LABS: Magnesium 0.9 mg/dL (1.7-2.3)
[2021-02-10] MEDS: clopidogrel 75 mg Tablet PO (09:09)
[2021-02-10] MEDS: aspirin 81 mg EC Tablet PO (09:09)
[2021-02-10] MEDS: diphenhydrAMINE 50 mg Capsule PO (09:09)
[2021-02-10] MEDS: magnesium sulfate premix 2 GM/50 ML PIGGYBACK IV (09:09)
[2021-02-10] MEDS: metoprolol tartrate 50 mg Tablet PO ×2 (09:09→21:12)
--- NOTE | 2021-02-10 10:53 | PC.CHAP ---
Pastoral Care Encounter/Spiritual Assessment Type of Contact [] Declined coal mill operator visit [] Patient/Family/Request visit [] Outpatient visit [] Follow-up visit [] Physician referral [] Code/Alert [x] Routine visit [] Staff referral [] Actively dying [] Patient sleeping [] Family support [] [] Out of room [] Palliative care [] [x] Receiving care in room [] Pre-surgical visit [] Trauma [] Long length of stay [] ICU visit [] Other: Relational/Emotional Strength [x] Patient feels connected with others/family/visitors/staff [] Distress [] Loneliness/isolation [] Abandonment Spirituality of Patient [x] Person of Lupe [] Attends Restorationist of their Lupe [x] Believes in Prayer [] Reads Bible or Catholic materials [] There are Spiritual issues to be addressed Electrical System Specialist Interventions [x] Prayer [x] Active listening [x] Non-anxious presence [x] Spiritual/emotional support [] Crisis/trauma care [x] Spiritual counseling [] Bereavement support [] Provided bereavement packet [] Provided Bible/devotional materials [] Provided toy/stuffed animal, coloring book to patient or family member [] Provided Communion [] Anointing/[place] [] Salvation [x] Completed spiritual assessment [] Other: Impact on Illness or Injury [] Angry [] Fearful [x] Anxious [] Often cries [] Exhaustion [] Unable to work [] Unable to attend synagogue [] Unable to walk/stand [] Unable to read [] Unable to drive [] Unable to eat/drink [] Unable to sleep [] Unable to be with family [] Patient intubated [] Other: Summary waiting on the results tests waiuting on doctor, has a good attitude, feeling better wants to go back to reegular actives, hopes to vgo home soon Time spent with patient 10 mins
[2021-02-10 11:16] LABS: Glucose Point of Care 224 mg/dL (70-110)
--- NOTE | 2021-02-10 11:42 | W.PM.OPSUD ---
Surgery/Procedure H&P Update DATE OF PROCEDURE: February 10, 2021 DATE H&P PERFORMED: 02/09/21 H&P UPDATE INFORMATION: I have reviewed H&P completed within last 30 days, I have examined patient prior to procedure and No changes to prior documentation PREOP DIAGNOSIS: NSTEMI PRIMARY INDICATION FOR PROCEDURE: NSTEMI PLANNED PROCEDURE: Left heart cath with possible percutaneous coronary intervention PATIENT REASSESSED PRIOR TO SEDATION, WITH NO CHANGE NOTED: Yes PHYSICAL EXAM: alert, oriented x 3, clear to auscultation bilaterally and regular rate & rhythm AIRWAY EVAL/ANESTHESIA PLAN: ASA III, Monitored Anesthesia, Local Anesthesia, Risks, benefits & alternatives of sedation and/or procedure discussed and Patient agrees to continue as planned
--- NOTE | 2021-02-10 12:44 | PM.PN ---
Subjective Subjective: Interval history: I visited with Milo this morning. He reported no chest discomfort overnight. He did not feel short of breath. Angiogram is planned for today. Medications: Reviewed: Yes Vitals/I&O/Wt Last Vital Signs Temp 97.7 F 02/10/21 08:00 Pulse 94 02/10/21 08:00 Resp 22 H 02/10/21 08:00 BP 102/54 02/10/21 08:00 Pulse Ox 94 02/10/21 08:00 02/09/21 02/10/21 02/10/21 22:59 06:59 14:59 Intake Total 270.262 / 270.262 150.45 / 420.712 Output Total 350 / 350 Balance 270.262 / 270.262 -199.55 / 70.712 Weight last 48 hrs Weight 74.117 kg Weight 75.07 kg Physical Exam Narrative: EXAM NARRATIVE: General exam no distress Neck is supple no lymphadenopathy or thyromegaly Cardiovascular regular rate and rhythm, no murmur Lungs clear. Diminished breath sounds are noted at the bases Abdomen is soft nontender with positive bowel sounds. No obvious organomegaly Extremities no cyanosis clubbing or edema, cap refill brisk Data : 02/10/21 04:19 02/10/21 04:19 A&P Assessment and plan (1) Non-STEMI (non-ST elevated myocardial infarction): Admission. Significant elevation of troponin with significant delta. Currently on a heparin drip Continue aspirin, Lipitor Continue beta-tatum Plavix load per cardiology Appreciate cardiology consultation Planning angiogram today TSH checked and normal Echocardiogram demonstrated EF of 30%, wall motion abnormalities and moderate mitral regurgitation. Status: Acute (2) Iron deficiency anemia: Close follow-up of anemia considering anticoagulation Status: Acute (3) Diabetes: Sliding scale insulin Status: Acute Qualifiers: Diabetes mellitus type: type 2 Diabetes mellitus extermination inspector insulin use: without intermediate use (4) Hypertension: Continue home medications with exception of hydrochlorothiazide which we will hold. We will also reduce CHEMO inhibitor dose. Status: Acute Qualifiers: Hypertension type: essential hypertension Qualified Code(s): I10 - Essential (primary) hypertension Additional A&P Information Full code Heparin drip will suffice for DVT prophylaxis. Attestations Medical Necessity Statement*: Needs continued hospitalization secondary to non-ST elevation myocardial infarction with evaluation by angiogram. Coding Level of Care Code Acute Renewable Energy Project Manager for Bernard Fwd Diagnoses Non-STEMI (non-ST elevated myocardial infarction) I21.4 Iron deficiency anemia D50.9 Diabetes E11.9 Diabetes mellitus type: type 2 Diabetes mellitus extermination inspector insulin use: without extermination inspector use Hypertension I10 Hypertension type: essential hypertension
--- NOTE | 2021-02-10 13:15 | PC.NURSE ---
Pt returned from laborer at approximately 1300. Catheter to right groin pulled in laborer. Drsg dry and intact no hematoma or swelling noted. Pt had no c/o pain or discomfort. Call light in reach. Will cont to monitor.
[2021-02-10 20:18] LABS: Glucose Point of Care 339 mg/dL (70-110)
--- NOTE | 2021-02-10 20:27 | XACV_ITS ---
Exam Room: [facility] Ht: 170 cm Wt: 74 kg BSA: 1.88 m2 Gender: Male : 1945 Any Known Allergies: No known allergies Exam Priority: Routine Indication(s): - Abnormal enzymes - Non-ST elevation [place] Procedure(s): Procedure Description: Diagnostic procedure Procedure Description: PCI procedure Procedure Description: Venous Graft Catheterization Procedure Description: MCNALLY Graft Catheterization Procedure Description: Drug Eluting Coronary Stent Procedure Description: Miscellaneous Procedure Description: Angio-Seal Procedure Description: ACT Procedure Description: Coronary Angiography Diagnostic Cath Status: Urgent Diagnostic Findings * Ascending Aorta to Posterior Descending Right graft: patent but has significant diffuse disease. Diseased, small target vessels. * Left Internal Mammary Artery to Distal Left Anterior Descending graft: patent, duck[place] artery is diffusely diseased. * Left Main: significant 80% stenosis, MICHELE: 3 flow. * Proximal Left Anterior Descending: total occlusion, MICHELE: 0 flow. * Proximal Right Coronary Artery: total occlusion, MICHELE: 0 flow. * Proximal Circumflex: total occlusion, MICHELE: 0 flow. * Ascending Aorta to 1st Diagonal graft: total occlusion, MICHELE: 0 flow. * Ascending Aorta to First Obtuse Marginal Branch Segment graft: severe 90% stenosis, MICHELE: 3 flow. * Four grafts visualized. * Coronary angiography shows right dominance. PCI Status: Urgent PCI Indication: NSTE - ACS Interventional Findings * Procedure detail: We engaged SVG to OM with initially JR4 guide catheter however wire could not be crossed as guide support was poor. We then switched guide to LCB. 0.014 run-through guidewire was used to cross the proximal SVG graft lesion and was put in the OM. We then placed a 4.0 x 18 mm resolute Stan drug-eluting stent. At this time we performed final angiogram that showed excellent stent expansion, MICHELE-3 flow and no residual stenosis. Guidewire and guide catheter were removed. Femoral artery sheath was removed and Angio-Seal was placed to achieve hemostasis. Conclusions 1. Severe 3 vessel duckwater coronary artery disease. 2. Four coronary grafts visualized. 3. Occluded SVG to Diagonal artery. Severe diffusely diseased SVG to RCA. 4. Patent MCNALLY to LAD however after anastamosis, patient has severe diffuse disease of the duck[place] vessels. 5. Severe proximal SVG to OM graft stenosis. This is the culprit vessel for the NSTEMI. 6. Successful revascularization of the SVG to OM with ORSEMARY x 1. Recommendations * Transfer to CSU. * Aspirin and plavix for atleast 1 year. * High intensity statin therapy. * Guideline directed medical therapy. * Outpatient cardiology follow up in 1 month. Interventional RX Recommendation: PCI w/o planned CABG Diagnostic RX Recommendation: PCI w/o planned CABG Anticoagulation: Heparin Clinical Evaluation EBL: 5mL-10mL Procedural Details Procedure Consent Obtained. Admit Source: In Patient. Current Diagnosis : NSTEMI. Pre-Procedure Time Out. Identified patient by full name and date of as verbalized by the patient/guarantor. Does the consent match the physician's order: Yes. Accurate & Complete Informed Consent: Yes. Inpatient/Outpatient History & Physical on Chart: Yes. If H&P is completed, is and addenduem needed: No; If yes, is the addendum complete: N/A. Visualize and Verify Site with Patient/Guarantor: N/A. Relevant Radiology Images available: Yes. Pre-op teaching completed and patient verbalized understanding. The risks, benefits, and alternatives of sedation and/or procedure were discussed by physician. The patient agrees to continue. Procedure started. [facility] Clinical Fraility Score: 5: Mildly Frail. Salary Manager Indications: ACS > 24 hours. Chest Pain Symptom Assessment: Typical Angina Symptoms. Cardiovascular Instability: No. Correct patient, site and procedure confirmed by cath team. Current diagnosis: NSTEMI. PERRLA. Strong, equal hand nutrient management specialist bilaterally. Lungs clear x 5 lobes. IV Site on Arrival: 20 gauge in the left anticubital. IV Fluids: 0.9% NaCl at KVO. 300 mL infused prior to prosthetic lab technician. Pre Procedural Pulses: bilateral radial was 3+. Pre Procedural Pulses: bilateral dorsalis pedis was Doppled. Pre Procedural Pulses: bilateral posterior tibial was Doppled. Oxygen started at 3liters/min via nasal canula. bilateral groins was prepped with chloroprep then draped in the usual sterile fashion. Physician notified. Baseline sample Acquired. HR: 68 BPM. Family updated at beginning of procedure by Dr Fox, [facility]. MD to update once procedure over. Family ok with that. Physician arrived. Equipment: 6F - Femoral. Cardiac Cath Pack. ACIST Manifold Kit Model BT 2000. Heparinized Saline (2 units/mL), 1000 mL bag. Kit, Micropuncture. Physician scrubbed in. Immediate Pre-Procedure Time Out. Correct Patient: Yes; Correct Procedure: Yes; Correct Site: Yes; Correct Patient Position: Yes; Correct Supplies: Yes; Dried Flammable Prep: Yes; Blood Products Available: N/A;. Lidocaine 1% infiltrated to the right groin. A 5 czech JL4 catheter in over wire. Multiple views taken of left coronary artery. Catheter removed over the standard wire. A 5 czech JR4 catheter in over wire. [place] right occluded at the ostium. SVG's to RCA visualized and patent. SVG's to Diaganol occluded. SVG's to OM visualized and patent. Redirected to MCNALLY. MCNALLY to LAD visualized. Inventory is CRD 6FR JR 4 GUIDE 100cm. Inventory is TR 180cm Runthrough NS extra floppy 0.014 wire. Catheter removed over the wire. 6 czech JR 4 guide catheter was inserted over the wire. Guide seated in the svg to OM. ACT drawn. Results 116 seconds. Therapeutic limits - pre-heparin administration 90-150 seconds and monitoring heparin during a vascular procedure >250 seconds. Runthrough inserted to the SVG to OM. Runthrough wire out. GUIDE catheter removed over the standard wire. Inventory is CRD 6FR LCB GUIDE. 6 czech LCB guide catheter was inserted over the wire. Runthrough guidewire was advanced through the guide catheter to lesion in the SVG to OM. Wire advanced across the lesion. Inflation Number : 1 Sunil Patel STAN 4.0X18 ROSEMARY -Lot Number# [id number] was prepped and advanced across the Aorta Left -> 1st Ob Eva. The stent was deployed at 12 CECI for 0:35 seconds. Expiration: 10-29-2022. Balloon out over wire. Angiography performed. Physician review of films. Wire out. Angiography performed. Catheter removed over the wire. Hand injection of common femoral right to assess for closure placement. Angioseal placed without complications. No signs or symptoms of hematoma noted. Sterile dressing applied per usual sterile fashion. ACT drawn. Results 223 seconds. Therapeutic limits - pre-heparin administration 90-150 seconds and monitoring heparin during a vascular procedure >250 seconds. Physician scrubbed out. A Angio-Seal VIP (St. Rashad) was successful obtaining hemostatsis at the Right Femoral artery insertion site. Sheath(s) removed and manual pressure held until hemostasis was achieved. Sterile 4x4 and Op-site applied to the puncture site. No oozing or hematoma noted. Post sheath removal instructions were given and the patient verbalized understanding. Post Procedure: Pulses reassessed and unchanged. Medication's Wasted: Lidocaine 1% = 7 mL. Medication's Wasted: Heparin = 1000 units. Medication's Wasted: Fentanyl = 75 mcg. Medication's Wasted: Versed = 1 mg. Total IV fluids: 436 mL. Fluoro: 12:07. Contrast type used: Visipaque 320 mgI/mL, 500 mL bottle. [id number]. Complications: None. Post-op diagnosis: NONSTEMI; PCI OF SVG TO OM. Estimated blood loss: 5mL-10mL. Procedure completed. Patient transferred by bed to 1st floor. Vital chart was stopped. Access Site Site: Right Femoral artery Sheath Size: 6 Fr Hemostasis Method: Angio-Seal VIP (St. Rashad) Hemostasis Success: Successful Procedure Medications Start: 11:43 AM Stop: 11:43 AM Medication: Versed Amount: 1 mg Route: I.V. Start: 11:47 AM Stop: 11:47 AM Medication: Fentanyl Amount: 25 mcg Route: I.V. Start: 12:11 PM Stop: 12:11 PM Medication: 0.9% Saline Amount: 400 ml Route: I.V. bolus Start: 12:16 PM Stop: 12:16 PM Medication: Heparin Amount: 7000 units Route: I.V. Start: 12:39 PM Stop: 12:39 PM Medication: Heparin Amount: 1000 units Route: I.V. I, the attending physician, have reviewed and verified all procedure medications. Yes, all medications given per verbal order History/Risk Factors Hypertension: Yes Dyslipidemia: Yes Peripheral Arterial Disease (PAD): No Myocardial Infarction (TX): No Obesity: No Renal Disease: No Prior Interventions PCI: No CABG: No Valve Surgery: No Report Signatures Finalized by Lalo Fox MD on 02/24/2021 10:07 AM
[2021-02-10] MEDS: tamsulosin 0.4 mg Capsule PO (21:12)
[2021-02-10] MEDS: atorvastatin 40 mg Tablet PO (21:12)
[2021-02-10] MEDS: mirtazapine 15 mg Tablet PO (21:13)
--- NOTE | 2021-02-10 23:09 | PC.NURSE ---
Bedside report received from Adam RN. Patient is resting in bed. A & O. No C/O of pain or other needs at this time. Cath site dressing is clean and intake, no bruising noted.
[2021-02-11] VITALS (8 sets, daily range): BP systolic 94–106; BP diastolic 50–60; PULSE 62–97; RESP 18–27; TEMP 36.2–36.9; O2SAT 93–97
[2021-02-11 05:16] LABS: Basophils % 0.4 %; Eosinophils % 0.3 %; Hematocrit 32.5 % (42.0-52.0); Hemoglobin 10.5 g/dL (11.7-16.6); Mean Corpuscular HGB Conc 32.3 g/dL (30.0-36.0); Mean Corpuscular Hemoglobin 30.5 pg (28.0-34.0); Mean Corpuscular Volume 94.5 fL (80-94); Mean Platelet Volume 11.8 fL (7.4-10.4); Monocytes # 0.7 10^3/uL (0.2-0.9); Monocytes % 9.1 %; Neutrophils # 6.17 10^3/uL (1.8-7.7); Neutrophils % 77.9 %; Nucleated Red Blood Cells % 0 %; Platelet Count 187 10^3/cmm (130-400); Red Blood Count 3.44 10^6/uL (4.1-5.3); Red Cell Distribution Width 13.5 % (12.1-15.1); White Blood Count 7.9 10^3/uL (4.0-10.0)
[2021-02-11 05:31] LABS: Anion Gap 15.9 (5-19); Blood Urea Nitrogen 37 mg/dL (8-23); Carbon Dioxide 22 mmol/L (22-29); Chloride 108 mmol/L (98-107); Glucose 213 mg/dL (65-115); Osmolality Calculated 309 mOsm/kg (285-295); Potassium 3.9 mmol/L (3.5-5.1); Sodium 142 mmol/L (136-145)
[2021-02-11] MEDS: pantoprazole DR 40 mg Tablet PO (05:45)
[2021-02-11 06:45] LABS: Glucose Point of Care 217 mg/dL (70-110)
[2021-02-11] MEDS: aspirin 81 mg EC Tablet PO (08:21)
[2021-02-11] MEDS: clopidogrel 75 mg Tablet PO (08:21)
[2021-02-11] MEDS: metoprolol tartrate 50 mg Tablet PO (09:56)
--- NOTE | 2021-02-11 10:27 | PM.PN ---
Subjective Subjective: Interval history: s/p LHC via right femoral access. He feels well. Medications: Reviewed: Yes Vitals/I&O/Wt Last Vital Signs Temp 97.2 F L 02/11/21 08:00 Pulse 93 02/11/21 08:43 Resp 22 H 02/11/21 08:00 BP 104/60 02/11/21 08:00 Pulse Ox 94 02/11/21 08:43 02/10/21 02/11/21 02/11/21 22:59 06:59 14:59 Intake Total 589.288 / 459.346 6709 / 1589.288 240 / 240 Balance 589.288 / 930.404 7443 / 1589.288 240 / 240 Weight last 48 hrs Weight 162 lb 12.8 oz Weight 163 lb 6.4 oz Physical Exam Narrative: EXAM NARRATIVE: GENERAL: elderly frail appearing gentleman in no acute distress HEENT: Pupils equal round reactive to light. No pallor or icterus. NECK: No JVD No carotid bruit. CARDIOVASCULAR SYSTEM: S1-S2 regular. No S3 or S4 present. No murmur rubs or gallops. RESPIRATORY SYSTEM: Chest clear to auscultation except at bases. No wheezes, oxxasional rales. ABDOMEN: Soft, nontender and nondistended. Normal bowel sounds present. EXTREMITIES: No cyanosis or clubbing. No edema. Right femoral access site with no significant bruising or hematoma LITHOGRAPHIC STRIPPER: Patient is alert oriented ?3. No focal neurological deficits. SKIN: Normal turgor and temperature. PSYCH: Normal insight and judgment. Data : 02/11/21 04:30 02/11/21 04:30 A&P Assessment and plan (1) Non-STEMI (non-ST elevated myocardial infarction): s/p LHC -SVG to OM with ostial 90% stenosis s/p ROSEMARY -Patent MCNALLY-LAD, SVG-RCA (diseased and supplies small vessel) and occluded SVG to diagonal. -continue ASA, plavix, statin, metoprolol, NTG PRN Status: Acute (2) Cardiomyopathy: LVEF=30% on recent echo. -change to metoprolol succinate 100 mg and start on low dose lisinopril 2.5 mg on discharge. -advised to use HCTZ PRN for weight gain and edema. -Plan for limited TTE after 6 weeks -f/u in 1 week with Ms. Harry and in 1 month with me in [facility]. Status: Acute Qualifiers: Cardiomyopathy type: ischemic Qualified Code(s): I25.5 - Ischemic cardiomyopathy (3) Hypertension: Status: Acute Qualifiers: Hypertension type: essential hypertension Qualified Code(s): I10 - Essential (primary) hypertension (4) Diabetes: Status: Acute Qualifiers: Diabetes mellitus telecommunications consultant insulin use: without prison use Diabetes mellitus type: type 2 Additional A&P Information SARAH/ CKD : baseline unknown; creatinine at 1.3 Iron deficiency anemia Carotid artery disease : f/u on carotid duplex. Hyperlipidemia Thank you for allowing me to participate in patient's care. Please feel free to call with questions or concerns. Attestations Medical Necessity Statement*: stable to be discharged home Time Spent in Patient Care: 16 - 35 minutes (>than 50% of time spent in counselling and/or direct pt care on unit). Coding Level of Care Code Acute Trench Digger Helper for g Fwd Diagnoses Non-STEMI (non-ST elevated myocardial infarction) I21.4 Cardiomyopathy I25.5 Cardiomyopathy type: ischemic Hypertension I10 Hypertension type: essential hypertension Diabetes E11.9 Diabetes mellitus telecommunications consultant insulin use: without telecommunications consultant use Diabetes mellitus type: type 2
[2021-02-11 12:11] LABS: Glucose Point of Care 318 mg/dL (70-110)
--- NOTE | 2021-02-11 12:48 | P.DS_ITS ---
Discharge Providers Date of Admission: 02/09/21 10:28 Date of Discharge: February 11, 2021 Attending Provider at Admission: Ethan Barnes MD Attending Provider at Discharge: Ethan Barnes MD Primary Care Provider: Huan De La Rosa DO Diagnoses at Discharge Discharge Diagnosis (1) Non-STEMI (non-ST elevated myocardial infarction): Status: Acute (2) Thrombocytopenia: Status: Acute Permanent problem details: Laboratory error (3) Hypertension: Status: Acute Qualifiers: Hypertension type: essential hypertension Qualified Code(s): I10 - Essential (primary) hypertension (4) Diabetes: Status: Acute Qualifiers: Diabetes mellitus type: type 2 Diabetes mellitus ferry terminal supervisor insulin use: without fdc use Reason for Visit Reason for Visit: N/V WEAKNESS, VERY PALE Hospital Course Hospital Course Milo is a 76-year-old white male who presented to the emergency department with chest discomfort. He was noted to have an elevated troponin, with significant delta. He was diagnosed with a non-ST elevation myocardial infarction received aspirin, statin, beta-tatum, anticoagulation with heparin, and Plavix. He underwent angiogram the following day demonstrating significant atherosclerotic disease. A stent was placed saphenous vein graft which was going to an obtuse marginal from prior bypass surgery. Full cardiology note pending. Echocardiogram was also performed demonstrating an EF of 30%, and moderate mitral regurgitation. He did well during his hospital stay and by February 11 he was chest discomfort free, able to ambulate the halls without difficulty. Medication was adjusted during his hospital stay secondary to borderline low b lood pressures. Terazosin was changed to Flomax. Lisinopril dose decreased. Metoprolol changed to XL at 100 mg daily. Plavix was added and aspirin dose decreased. He will follow-up with his primary, and cardiology early next week and cardiology again in 1 month. Groin site where catheterization was done did not demonstrate its significant hematoma, and distal pulses were intact at discharge. Physical Exam Narrative: EXAM NARRATIVE: General exam no apparent distress Cardiovascular regular in rhythm without murmur Lungs clear Abdomen is soft, positive bowel sounds Extremities no cyanosis clubbing or edema. Right groin site without significant hematoma and distal pulses intact. Discharge Data Data Completed and Pending: Completed Studies During Hospitalization Category Date Time Status XR chest 1V keesha ble [id number] Stat Exams 02/09/21 08:49 Completed CV echo complete* [id number] Routine Ultrasound 02/09/21 12:45 Completed Pending at discharge Category Date Time Status FIXED WING PILOT request for service Urgent Exams 02/10/21 20:27 Taken Platelet Count Q2 D Lab 02/13/21 04:00 Ordered CV carotid duplex BI* [id number] Routine Ultrasound 02/11/21 17:57 Taken Labs from last 24 hours 02/11/21 02/11/21 02/11/21 11:42 06:32 04:30 WBC 7.9 RBC 3.44 L Hgb 10.5 L Hct 32.5 L MCV 94.5 H MCH 30.5 MCHC 32.3 RDW 13.5 Plt Count 187 MPV 11.8 H Neut % (Auto) 77.9 Lymph % (Auto) 12.0 [place] % (Auto) 9.1 Eos % (Auto) 0.3 Baso % (Auto) 0.4 Neut # (Auto) 6.17 Lymph # (Auto) 1.0 [place] # (Auto) 0.7 Eos # (Auto) 0.0 Baso # (Auto) 0.0 Nucleated RBC % (a uto) 0 Nucleated RBCs # 0.0 Sodium Potassium Chloride Carbon Dioxide Anion Gap BUN Creatinine GFR Calculation Glucose POC Glucose 318 H 217 H Calculated Osmolal ity Calcium 02/11/21 02/10/21 04:30 20:09 WBC RBC Hgb Hct MCV MCH MCHC RDW Plt Count MPV Neut % (Auto) Lymph % (Auto) [place] % (Auto) Eos % (Auto) Baso % (Auto) Neut # (Auto) Lymph # (Auto) [place] # (Auto) Eos # (Auto) Baso # (Auto) Nucleated RBC % (a uto) Nucleated RBCs # Sodium 142 Potassium 3.9 Chloride 108 H Carbon Dioxide 22 Anion Gap 15.9 BUN 37 H Creatinine 1.3 H GFR Calculation Not Reportable Glucose 213 H POC Glucose 339 H Calculated Osmolal ity 309 H Calcium 8.0 L Vitals: Last Vital Signs Temp 97.2 F L 02/11/21 08:00 Pulse 93 02/11/21 08:43 Resp 22 H 02/11/21 08:00 BP 104/60 02/11/21 08:00 Pulse Ox 94 02/11/21 08:43 Discharge Plan Discharge Patient Disposition: Home Condition: Stable Prescriptions: New tamsulosin 0.4 mg Capsule 0.4 mg PO BEDTIME Qty: 30 RF: 0 lisinopril 2.5 mg tablet 2.5 mg PO DAILY Qty: 30 RF: 0 metoprolol succinate [Toprol XL] 100 mg tablet extended release 24 hr 100 mg PO DAILY Qty: 30 RF: 0 nitroglycerin 0.4 mg tablet, sublingual 0.4 mg sublingual Q5M PRN (Reason: chest pain) Qty: 20 RF: 0 aspirin 81 mg Tablet,Delayed Release (Dr/Ec) 81 mg PO DAILY Qty: 30 RF: 0 clopidogrel 75 mg Tablet 75 mg PO DAILY Qty: 30 RF: 11 Continued atorvastatin 80 mg tablet 40 mg PO BEDTIME RF: 0 cholecalciferol (vitamin D3) 25 mcg (1,000 unit) capsule 25 mcg PO QAM RF: 0 omega-3 fatty acids [Fish Oil Concentrate] 1,000 mg capsule 1,000 mg PO BEDTIME RF: 0 metformin 1,000 mg tablet 1,000 mg PO BID RF: 0 mirtazapine 30 mg tablet 15 mg PO BEDTIME RF: 0 thiamine HCl (vitamin B1) 100 mg tablet 100 mg PO QAM RF: 0 ferrous sulfate 325 mg (65 mg iron) Tablet 325 mg PO BEDTIME RF: 0 Prilosec 40 mg Capsule,Delayed Release(Dr/Ec) 40 mg PO QAM RF: 0 Colace 100 mg Capsule 100 mg PO BEDTIME PRN (Reason: Constipation) RF: 0 Discontinued amlodipine 10 mg tablet 10 mg PO QAM RF: 0 lisinopril 40 mg tablet 20 mg PO BID RF: 0 terazosin 10 mg capsule 10 mg PO BEDTIME RF: 0 aspirin 325 mg Tablet 325 mg PO BEDTIME RF: 0 metoprolol tartrate 100 mg Tablet 50 mg PO BID RF: 0 hydrochlorothiazide 25 mg Tablet 25 mg PO QAM RF: 0 Discharge Orders: Discharge Order (Routine); Ordered 02/11/21 Ordered By: Ethan Barnes Referrals: Huan De La Rosa DO [Primary Care Provider] - 4-7 days Niesha Harry FNP [Nurse Practitioner] - 4-7 days (Follow-up angiogram) Kimber Reddy MD [Physician] - 1 month Discharge Diet: Cardiac and Diabetic Discharge Activity: Increase activity as tolerated Patient Instructions: Myocardial Infarction (DC), Left Heart Catheterization (DC), Opioid Safety Activity Restrictions/Additional Instructions: Take all medicine as prescribed Do not resume your Metformin, until February 13 Discharge Attestations Time Spent in Discharge Care*: greater than 30 min Quality Metrics Clinical Quality Measures During this hospital stay, did patient experience: AMI Clinical Trial Participant: No Contraindication to aspirin (AMI): Aspirin given Contraindication to statin: Statin prescribed Contraindication to PCI: PCI performed Coding Level of Care Code Acute Chg FW DC note Diagnoses Non-STEMI (non-ST elevated myocardial infarction) I21.4 Thrombocytopenia D69.6 Hypertension I10 Hypertension type: essential hypertension Diabetes E11.9 Diabetes mellitus type: type 2 Diabetes mellitus fdc insulin use: without ferry terminal supervisor use
--- NOTE | 2021-02-11 13:12 | PC.NURSE ---
Called new Rx to [facility] pharmacy dgtr requested a [place] [facility] [place]- lisinopril 2.5 mg, metoprolol 100 xl, nitroglycerine SL bottle, plavix 75 mg, flomax
--- NOTE | 2021-02-11 13:42 | PC.CHAP ---
Pastoral Care Encounter/Spiritual Assessment Type of Contact [] Declined grade school teacher visit [] Patient/Family/Request visit [] Outpatient visit [xx] Follow-up visit [] Physician referral [] Code/Alert [xx] Routine visit [] Staff referral [] Actively dying [] Patient sleeping [] Family support [] [] Out of room [] Palliative care [] [] Receiving care in room [] Pre-surgical visit [] Trauma [xx] Long length of stay [] ICU visit [] Other: Relational/Emotional Strength [xx] Patient feels connected with others/family/visitors/staff [] Distress [] Loneliness/isolation [] Abandonment Spirituality of Patient [xx] Person of Lupe [] Attends Congregational of their Lupe [xx] Believes in Prayer [] Reads Bible or Samaritan materials [] There are Spiritual issues to be addressed Floral Manager Interventions [xx] Prayer [xx] Active listening [xx] Non-anxious presence [] Spiritual/emotional support [] Crisis/trauma care [] Spiritual counseling [] Bereavement support [] Provided bereavement packet [] Provided Bible/devotional materials [] Provided toy/stuffed animal, coloring book to patient or family member [] Provided Communion [] Anointing/[place] [] Salvation [xx] Completed spiritual assessment [] Other: Impact on Illness or Injury [] Angry [] Fearful [] Anxious [] Often cries [] Exhaustion [] Unable to work [] Unable to attend buddhism [] Unable to walk/stand [] Unable to read [] Unable to drive [] Unable to eat/drink [] Unable to sleep [] Unable to be with family [] Patient intubated [] Other: Summary Patient stated he feels much better and is ready to go home. Daughter has visited each day and will visit today also. Time spent with patient 7 minutes
--- NOTE | 2021-02-11 14:30 | PC.NURSE ---
Discharge to home Discharge papers proivided to dgtr at bedside. follow-up appointments discuss to dgtr. educated pt and dgtr on his new Rx actions, dosing, timing. Informed them on the continued meds, dose changes and stopped meds. dgtr teach back.
--- NOTE | 2021-02-11 14:30 | PC.NURSE ---
meds to bed awaiting for them to bring the meds.
--- NOTE | 2021-02-11 15:23 | PC.NURSE ---
meds to bed delivered.
--- NOTE | 2021-02-11 17:57 | USCV_ITS ---
Milo Echeverria Age: 76 Gender: M : 1945 Exam Date: 02/11/2021 05:50 Ordering Phys: Kimber Reddy MD ([email or web address]) Technologist: Anny Bellamy [place] [facility] [place]: EVAL FOR CAROTID STENOSIS Risk Factors: Previous Vascular Surgery: Right Brachial BP: / Left Brachial BP: / Right Left Velocity (cm/s) Spectral Plaque Velocity (cm/s) Spectral Plaque Syst/Diast Broadening Syst/Diast Broadening 50.40/ 11.10 Prox CCA 67.70 / 14.30 59.70/ 10.50 Mid CCA 80.30 / 17.10 64.10/ 12.80 Distal CCA 59.80 / 11.10 83.70/ 12.80 Prox ICA 81.60 / 26.70 76.90/ 20.40 Mid ICA 111.80/ 28.00 63.80/ 23.90 Distal ICA 110.20/ 27.10 90.60 ECA 72.60 1.31 ICA/CCA 1.39 Antegrade Vertebral Antegrade 38.80/ 12.40 cm/s 57.30/ 14.50 cm/s Tri Subclavian Tri 81.60 124.6 0 FINDINGS Mildly to moderate heterogeneous plaques of the bifurcations bilaterally. Intimal thickening in the common carotid arteries bilaterally. Antegrade flow in the vertebral arteries bilaterally. Normal Doppler flow velocities in the external carotid arteries bilaterally CONCLUSIONS Mildly to moderate heterogeneous plaques of the bifurcations bilaterally with Doppler features suggesting less than 50% stenosis. No significant stenosis in the external carotid, vertebral or subclavian arteries bilaterally No similar previous studies are available for comparison Dr Artur Orosco MD [facility] (Electronically Signed) Final Date: 11 February 2021 15:24 S
== END 2021-02-11 14:30 | disposition home or self-care (01) | DRG 247 ==
LOC: ER 11:50 → ER IP 16:16 → CSU 18:08
PROVIDERS: Internal Medicine; Internal Medicine Cardiovascular Disease; Admitting Provider Internal Medicine; Emergency Provider Emergency Medicine; PCP Emergency Medicine Emergency Medical Services; Visit Provider Internal Medicine
PROC: 027034Z Dilation of Coronary Artery, One Artery with Drug-eluting Intraluminal Device, Percutaneous Approach (ICD-10-PCS; principal; 2021-02-10 11:30)
PROC: 027034Z Dilation of Coronary Artery, One Artery with Drug-eluting Intraluminal Device, Percutaneous Approach (ICD-10-PCS; 2021-02-10 11:30)
DX: I21.4 Non-ST elevation (NSTEMI) myocardial infarction (principal); I25.810 Atherosclerosis of coronary artery bypass graft(s) without angina pectoris; N17.9 Acute kidney failure, unspecified; I25.10 Atherosclerotic heart disease of native coronary artery without angina pectoris; I12.9 Hypertensive chronic kidney disease with stage 1 through stage 4 chronic kidney disease, or unspecified chronic kidney disease; N18.9 Chronic kidney disease, unspecified; E11.22 Type 2 diabetes mellitus with diabetic chronic kidney disease; K57.30 Diverticulosis of large intestine without perforation or abscess without bleeding; N40.0 Benign prostatic hyperplasia without lower urinary tract symptoms; Z85.46 Personal history of malignant neoplasm of prostate; E78.5 Hyperlipidemia, unspecified; G47.00 Insomnia, unspecified; G47.30 Sleep apnea, unspecified; D50.9 Iron deficiency anemia, unspecified
CPT/HCPCS: 36415; 36416; 71045; 80048; 80053; 82962; 83735; 83880; 84443; 84484; 85025; 85347; 85610; 85730; 93005; 93306; 93459; 93880; 96372; 96374; 96376; 99285; C1725; C1760; C1769; C1874; C1887; C1894; C8929; C9600; J1644; J1815; J2250; J3010; J3475; J7030; Q0163; Q9967

== ENCOUNTER → 2021-02-21 13:57 | Outpatient (BNVA) | payer OTHER, SELFPAY | PROVIDERS: PCP Emergency Medicine Emergency Medical Services; Visit Provider Nurse Practitioner Family | DX: I25.10 Atherosclerotic heart disease of native coronary artery without angina pectoris (principal); I10 Essential (primary) hypertension; I50.20 Unspecified systolic (congestive) heart failure | CPT/HCPCS: 80048 ==

== ENCOUNTER 2021-04-19 14:27 | Outpatient (CLI) | payer OTHER, SELFPAY ==
--- NOTE | 2021-04-19 15:00 | USCV_ITS ---
Juwan Milo Age: 76 Gender: M : 1945 Exam Date: 04/19/2021 14:42 Ordering Phys: Kimber Reddy MD ([email or web address]) Technologist: Exam Location: [facility] [place] Indication: EF BP: 145 / 80 HR: Rhythm: Sinus Technical Quality: Good MEASUREMENTS (Male / Female) Normal Values 2D ECHO LV Diastolic Diameter PLAX 5.6 cm 4.2 - 5.9 / 3.9 - 5.3 cm LV Systolic Diameter PLAX 3.6 cm IVS Diastolic Thickness 0.9 cm 0.6 - 1.0 / 0.6 - 0.9 cm IVS Systolic Thickness 1.0 cm LVPW Diastolic Thickness 1.0 cm 0.6 - 1.0 / 0.6 - 0.9 cm LVPW Systolic Thickness 1.2 cm LVOT Diameter 2.0 cm LV Ejection Fraction 2D Teich 44.8 % LV Ejection Fraction MOD 2C 39.7 % LV Ejection Fraction 2C AL 36.9 % LA Diameter 4.3 cm LA Width 4.2 cm LA Height 5.4 cm RA Width 4.0 cm RA Height 5.0 cm FINDINGS Left Ventricle Normal left ventricular cavity size. Moderately decreased left ventricular systolic function. Left ventricular ejection fraction is estimated at 30 %. Moderate global hypokinesis with severe hypokinesis of septal and inferior hernandez. Right Ventricle Normal right ventricular size and systolic function. Right Atrium Normal right atrial size. Left Atrium Moderately increased left atrial size. Mitral Valve Structurally normal mitral valve. Mild to moderate mitral valve regurgitation. Aortic Valve Aortic valve not well visualized. 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 Trace to mild aortic valve regurgitation. Tricuspid Valve Structurally normal tricuspid valve. Pulmonic Valve Pulmonic valve not well visualized. Pericardium No pericardial effusion. Aorta Normal sized aortic root. CONCLUSIONS 1. Normal left ventricular cavity size. Moderately decreased left ventricular systolic function. Left ventricular ejection fraction is estimated at 30 %. Moderate global hypokinesis with severe hypokinesis of septal and inferior hernandez. 2. Mild to moderate mitral valve regurgitation. 3. Moderately increased left atrial size. 4. Trace to mild aortic valve regurgitation. 5. There may not have been any significant change when compared to previous echocardiogram dated 02/09/21. Kimber Reddy MD (Electronically Signed) Final Date: 23 April 2021 11:21 S
== END 2021-04-19 14:28 | disposition home or self-care (01) ==
LOC: US 14:29
PROVIDERS: PCP Emergency Medicine Emergency Medical Services; Visit Provider Internal Medicine Cardiovascular Disease
DX: I50.20 Unspecified systolic (congestive) heart failure (principal); I08.0 Rheumatic disorders of both mitral and aortic valves
CPT/HCPCS: 93308

== ENCOUNTER → 2021-05-17 11:48 | Outpatient (BNVA) | payer OTHER, SELFPAY | PROVIDERS: PCP Emergency Medicine Emergency Medical Services; Visit Provider Internal Medicine Cardiovascular Disease | DX: I11.0 Hypertensive heart disease with heart failure (principal); I50.23 Acute on chronic systolic (congestive) heart failure; I25.810 Atherosclerosis of coronary artery bypass graft(s) without angina pectoris; E78.2 Mixed hyperlipidemia; I77.9 Disorder of arteries and arterioles, unspecified | CPT/HCPCS: 80048; 83735; 83880 ==

== ENCOUNTER → 2021-05-30 10:05 | Outpatient (BNVA) | payer OTHER, SELFPAY | PROVIDERS: PCP Emergency Medicine Emergency Medical Services; Visit Provider Internal Medicine Cardiovascular Disease | DX: I77.9 Disorder of arteries and arterioles, unspecified (principal); I25.810 Atherosclerosis of coronary artery bypass graft(s) without angina pectoris; I25.5 Ischemic cardiomyopathy; I50.23 Acute on chronic systolic (congestive) heart failure; E78.5 Hyperlipidemia, unspecified | CPT/HCPCS: 80048; 83735; 83880 ==

== ENCOUNTER 2021-05-31 17:52 | Emergency (ER) | payer OTHER, MEDICARE, SELFPAY ==
[2021-05-31 18:41] VITALS: BP 162/90; PULSE 95; RESP 18; TEMP 36.8; O2SAT 98; BMI 24.3
[2021-05-31 19:09] LABS: Basophils % 0.4 %; Eosinophils # 0.1 10^3/uL (0.0-0.8); Eosinophils % 1.4 %; Hematocrit 39.2 % (42.0-52.0); Hemoglobin 12.6 g/dL (11.7-16.6); Lymphocytes # 1.9 10^3/uL (0.8-4.8); Lymphocytes % 22.5 %; Mean Corpuscular HGB Conc 32.1 g/dL (30.0-36.0); Mean Corpuscular Hemoglobin 29.9 pg (28.0-34.0); Mean Corpuscular Volume 92.9 fl (80-94); Mean Platelet Volume 10.9 fL (7.4-10.4); Monocytes # 0.5 10^3/uL (0.2-0.9); Monocytes % 5.8 %; Neutrophils % 69.5 %; Nucleated Red Blood Cells % 0 %; Platelet Count 228 10^3/cmm (130-400); Red Blood Count 4.22 10^6/uL (4.1-5.3); Red Cell Distribution Width 13.2 % (12.1-15.1); White Blood Count 8.3 10^3/uL (4.0-10.0)
[2021-05-31 19:29] LABS: Alanine Aminotransferase 11 U/L (0-41); Albumin Level 4.4 g/dL (3.5-5.2); Alkaline Phosphatase 75 IU/L (40-130); Anion Gap 16.9 (5-19); Aspartate Amino Transferase 11 U/L (0-40); Blood Urea Nitrogen 23 mg/dL (8-23); Calcium 9.3 mg/dL (8.5-10.5); Carbon Dioxide 27 mmol/L (22-29); Chloride 99 mmol/L (98-107); Globulin 2.8 g/dL (1.3-4.6); Glucose 185 mg/dL (65-115); Osmolality Calculated 294 mOsm/kg (285-295); Potassium 4.9 mmol/L (3.5-5.1); Sodium 138 mmol/L (136-145); Total Bilirubin 0.2 mg/dL (0.15-1.2); Total Protein 7.2 g/dL (6.6-8.7)
[2021-05-31 19:30] LABS: Magnesium 0.8 mg/dL (1.7-2.3)
[2021-05-31 20:04] VITALS: BP 160/78; PULSE 88; RESP 18; O2SAT 98
[2021-05-31 22:30] VITALS: BP 126/73; PULSE 89; RESP 18; O2SAT 96
--- NOTE | 2021-05-31 22:44 | W.ED.RECABL ---
HPI - Recheck/Abnormal Lab/Rx General: Chief Complaint: Recheck/Abnormal Lab/Rx Stated Complaint: LOW MAGNESIUM Time Seen by Provider: 05/31/21 22:38 Source: patient Mode of arrival: ambulatory Limitations: no limitations History of Present Illness: HPI narrative: 76-year-old male states he has a history of low magnesium had blood drawn today and was called at 5 PM his magnesium was 0.8 told come to ER to get his magnesium here. He has had some slight weakness denies any other complaints denies any vomiting or diarrhea. Review of Systems Const: Denies: fever(s), chills, body aches or change in appetite Eyes: Denies: blurry vision or eye discomfort ENMT: Denies: throat pain or dental pain Card: Denies: chest pain Resp: Denies: dyspnea GI: Denies: abdominal pain, nausea, vomiting or diarrhea : Denies: dysuria Musc: Denies: neck pain or back pain Skin/Breast: Denies: rash Neuro: Denies: headache(s) Psych: Denies: depression Omar/Lymph: Denies: easy bruising All/Imm: Denies: urticaria PFSH ED PFSH: Medical History BPH (benign prostatic hyperplasia) Carotid artery disease Coronary artery disease Diabetes GERD (gastroesophageal reflux disease) History of anemia History of prostate cancer Hyperlipidemia Hypertension Insomnia Sleep apnea Systolic CHF Surgical History History of heart bypass surgery History of hernia repair 2x History of neck surgery Left carotid endarterectomy Family History Denies family history of Anesthesia complication Bleeding disorder Social History Smoking and tobacco status: never smoked Alcohol intake: never Physical Exam Const: COMMON NORMALS: no acute distress, patient oriented x3 and healthy appearing HENMT: COMMON NORMALS: normocephalic and atraumatic HEAD & SCALP: normocephalic and atraumatic Eye: COMMON NORMALS: Equal, round and reactive pupils present and EOMs intact bilaterally PUPIL: Yes Equal, round and reactive pupils present Neck/C-Spine: COMMON NORMALS: full ROM and supple Chest: COMMONS NORMALS: normal inspection of the chest and normal palpation of entire chest wall Resp: COMMON NORMALS: normal respiratory effort, No retractions, No use of accessory muscles and clear to auscultation bilaterally AUSCULTATION: clear to auscultation bilaterally Cardio: COMMON NORMALS: regular rate, regular rhythm and No murmurs present (Cardio) RATE: regular rate RHYTHM: regular rhythm GI: COMMON NORMALS: Normal to inspection, nondistended, normoactive bowel sounds present, Soft to palpation, non-tender and no masses PALPATION: Yes Soft to palpation Extremity: COMMON NORMALS: normal to inspection and full ROM Neuro: COMMON NORMALS: patient oriented x3, moves all extremities and no focal motor deficits Psych: COMMON NORMALS: mental status grossly normal, Normal thought process present and cooperative THOUGHT PROCESS: Normal thought process present Skin: COMMON NORMALS: no rashes or lesions noted and no wounds GENERAL SKIN EXAM: no rashes or lesions noted Course Vital Signs: Vital signs: Vital Signs Temperature 98.3 F 05/31/21 18:41 Pulse Rate 89 05/31/21 22:30 Respiratory Rate 18 05/31/21 22:30 Blood Pressure 126/73 05/31/21 22:30 Pulse Oximetry 96 05/31/21 22:30 MDM - Recheck/Abnormal Lab/Rx MDM Narrative: Medical decision making narrative: Patient presents here with hypomagnesia is well-appearing here with no medical complaints did give her magnesium drip he is stable for discharge is to have his magnesium rechecked in 2 to 3 days he is return if worsening he understands agrees to plan. Lab Data: Labs: Lab Results 05/31/21 05/31/21 18:45 18:45 WBC 8.3 10^3/uL 10^3/ uL (4.0-10.0) RBC 4.22 10^6/uL 10^6 /uL (4.1-5.3) Hgb 12.6 g/dL g/dL (11.7-16.6) Hct 39.2 % L % (42.0-52.0) MCV 92.9 fl fl (80-94) MCH 29.9 pg pg (28.0-34.0) MCHC 32.1 g/dL g/dL (30.0-36.0) RDW 13.2 % % (12.1-15.1) Plt Count 228 10^3/cmm 10^3 /cmm (130-400) MPV 10.9 fL H fL (7.4-10.4) Neut % (Auto) 69.5 % % Lymph % (Auto) 22.5 % % [place] % (Auto) 5.8 % % Eos % (Auto) 1.4 % % Baso % (Auto) 0.4 % % Neut # (Auto) 5.80 10^3/uL 10^3 /uL (1.8-7.7) Lymph # (Auto) 1.9 10^3/uL 10^3/ uL (0.8-4.8) [place] # (Auto) 0.5 10^3/uL 10^3/ uL (0.2-0.9) Eos # (Auto) 0.1 10^3/uL 10^3/ uL (0.0-0.8) Baso # (Auto) 0.0 10^3/uL 10^3/ uL (0.0-0.1) Nucleated RBC % (a uto) 0 % % Nucleated RBCs # 0.0 /100WBC /100W BC Sodium 138 mmol/L mmol/L (136-145) Potassium 4.9 mmol/L mmol/L (3.5-5.1) Chloride 99 mmol/L mmol/L (98-107) Carbon Dioxide 27 mmol/L mmol/L (22-29) Anion Gap 16.9 (5-19) BUN 23 mg/dL mg/dL (8-23) Creatinine 0.8 mg/dL mg/dL (0.7-1.2) GFR Calculation Not Reportable Glucose 185 mg/dL H mg/dL (65-115) Calculated Osmolal ity 294 mOsm/kg mOsm/ kg (285-295) Calcium 9.3 mg/dL mg/dL (8.5-10.5) Magnesium 0.8 mg/dL L* mg/d L (1.7-2.3) Total Bilirubin 0.2 mg/dL mg/dL (0.15-1.2) AST 11 U/L U/L (0-40) ALT 11 U/L U/L (0-41) Alkaline Phosphata se 75 IU/L IU/L (40-130) Total Protein 7.2 g/dL g/dL (6.6-8.7) Albumin 4.4 g/dL g/dL (3.5-5.2) Globulin 2.8 g/dL g/dL (1.3-4.6) Discharge Plan Discharge Patient Disposition: Home Clinical Impression: Hypomagnesemia Condition: Stable Prescriptions: No Action atorvastatin 80 mg tablet 40 mg PO BEDTIME RF: 0 cholecalciferol (vitamin D3) 25 mcg (1,000 unit) capsule 25 mcg PO QAM RF: 0 omega-3 fatty acids [Fish Oil Concentrate] 1,000 mg capsule 1,000 mg PO BEDTIME RF: 0 metformin 1,000 mg tablet 1,000 mg PO BID RF: 0 mirtazapine 30 mg tablet 15 mg PO BEDTIME RF: 0 thiamine HCl (vitamin B1) 100 mg tablet 100 mg PO QAM RF: 0 magnesium L-lactate [Magtab] 84 mg tablet extended release 84 mg PO BID Qty: 180 RF: 3 magnesium L-lactate [Magtab] 84 mg tablet extended release 84 mg PO BID Qty: 180 RF: 3 spironolactone [Aldactone] 25 mg tablet 25 mg PO DAILY Qty: 90 RF: 3 ferrous sulfate 325 mg (65 mg iron) Tablet 325 mg PO BEDTIME RF: 0 omeprazole 40 mg Capsule,Delayed Release(Dr/Ec) 40 mg PO QAM RF: 0 Colace 100 mg Capsule 100 mg PO BEDTIME PRN (Reason: Constipation) RF: 0 clopidogrel 75 mg Tablet 75 mg PO DAILY Qty: 30 RF: 11 aspirin 81 mg Tablet,Delayed Release (Dr/Ec) 81 mg PO DAILY Qty: 30 RF: 0 tamsulosin 0.4 mg Capsule 0.4 mg PO BEDTIME Qty: 30 RF: 0 lisinopril 2.5 mg tablet 2.5 mg PO DAILY Qty: 30 RF: 0 Toprol XL 100 mg tablet extended release 24 hr 100 mg PO DAILY Qty: 30 RF: 0 nitroglycerin 0.4 mg tablet, sublingual 0.4 mg sublingual Q5M PRN (Reason: chest pain) Qty: 20 RF: 0 Discharge Orders: Discharge ED (Routine); Ordered 05/31/21 Ordered By: Elyse Stark Referrals: Huan De La Rosa DO [Primary Care Provider] - Discharge Diet: Advance as tolerated Discharge Activity: Resume usual activity Patient Instructions: Hypomagnesemia (ED) Coding Level of Care Code ED Student Financial Aid Manager for Bladimirg Fwd Exam Comprehensive
[2021-05-31] MEDS: magnesium sulfate premix 4 GM/100 ML PREMIX IV (22:53)
[2021-06-01 01:07] VITALS: BP 113/58; PULSE 71; RESP 18; O2SAT 94
== END 2021-06-01 01:02 | disposition home or self-care (01) ==
PROVIDERS: Emergency Provider Emergency Medicine; PCP Emergency Medicine Emergency Medical Services
DX: E83.42 Hypomagnesemia (principal); N40.0 Benign prostatic hyperplasia without lower urinary tract symptoms; I25.10 Atherosclerotic heart disease of native coronary artery without angina pectoris; I10 Essential (primary) hypertension; E78.5 Hyperlipidemia, unspecified; E11.9 Type 2 diabetes mellitus without complications; Z79.84 Long term (current) use of oral hypoglycemic drugs; Z79.02 Long term (current) use of antithrombotics/antiplatelets; Z79.82 Long term (current) use of aspirin; Z85.46 Personal history of malignant neoplasm of prostate
CPT/HCPCS: 80053; 83735; 85025; 96365; 96366; 99283; J3475

== ENCOUNTER → 2021-06-09 13:50 | Outpatient (BNVA) | payer OTHER, SELFPAY | PROVIDERS: PCP Emergency Medicine Emergency Medical Services; Visit Provider Thoracic Surgery (Cardiothoracic Vascular Surgery) | DX: Z20.822 Contact with and (suspected) exposure to COVID-19 (principal); I25.5 Ischemic cardiomyopathy | CPT/HCPCS: 87635 ==

== ENCOUNTER 2021-06-13 18:49 | Observation (INO) | payer OTHER, SELFPAY ==
[2021-06-10 12:17] VITALS: BMI 23.5
[2021-06-13] VITALS (11 sets, daily range): BP systolic 119–151; BP diastolic 36–88; PULSE 64–101; RESP 16–18; TEMP 36.4–37; O2SAT 92–98; BMI 23.5
--- NOTE | 2021-06-13 | SCC_ITS ---
Procedure Done: Automatic implantable cardiac defibrillator placement 112.0 seconds of fluoroscopic guidance, for a cumulative dose of 20.87 mGy, was provided to Dr. Keller by the radiology department. C-arm images of the chest were saved for the patient's permanent record. [facility]
--- NOTE | 2021-06-13 14:19 | ANES.PREANE2 ---
Pre-Anesthetic Assessment Pre-Anesthetic Assessment: Height/Weight: Height 1.7 m Weight 68.039 kg Preop Diagnosis: NSTEMI Proposed Procedure: Operation Date: 06/13/21 15:40 Proposed Procedures p Defibrillator Placement(Not Applicable) - Corky Keller MD Familial anesthetic complications: none Was Beta Yohannes taken within 24 hours: N/A Was Clonidine taken within 24 hours: N/A Last intake: > 8hrs Social: Social History: No alcohol and No tobacco Exam: Pre-Anes Outpt Exam: alert, oriented x 3, clear to auscultation bilaterally and regular rate & rhythm Airway: MP: 3 Dentition: Other (no teeth) Additional comments: amezcua CV/HEM: CV/HEM: CAD (s/p cabg and stent) and CHF 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 Severe 3 vessel [place] coronary artery disease. 2. Four coronary grafts visualized. 3. Occluded SVG to Diagonal artery. Severe diffusely diseased SVG to RCA. 4. Patent MCNALLY to LAD however after anastamosis, patient has severe diffuse disease of the [place] vessels. 5. Severe proximal SVG to OM graft stenosis. This is the culprit vessel for the NSTEMI. 6. Successful revascularization of the SVG to OM with ROSEMARY x 1. Recommendations * Transfer to [facility]. * Aspirin and plavix for atleast 1 year. * High intensity statin therapy. * Guideline directed medical therapy. * Outpatient cardiology follow up in 1 month. Echo 02/23 CONCLUSIONS 1. This is a technically difficult study with poor ultrasonic windows. 2. Mildly increased left ventricular cavity size. Moderately decreased left ventricular systolic function. Left ventricular ejection fraction is estimated at 30 %. There is global hypokinesis with severe hypokinesis of basal to mid anteroseptal, basal to mid inferoseptal, basal to mid inferior hernandez. Abnormal diastolic function. 3. At least moderate mitral valve regurgitation. 4. No prior similar studies to compare. Metabolic: Metabolic: DM Neuropsych: Comments: CAROTID DOPPLER CONCLUSIONS 02/23 Mildly to moderate heterogeneous plaques of the bifurcations bilaterally with Doppler features suggesting less than 50% stenosis. No significant stenosis in the external carotid, vertebral or subclavian arteries bilaterally No similar previous studies are available for comparison Anesthetic Plan: ASA status: 4 Anesthesia: MAC Risk of > 500 ml blood loss (7ml/kg in children): No PFSH Anesthesia PFSH: Medical History BPH (benign prostatic hyperplasia) Carotid artery disease Coronary artery disease Diabetes GERD (gastroesophageal reflux disease) History of anemia History of prostate cancer Hyperlipidemia Hypertension Insomnia Sleep apnea Systolic CHF Surgical History History of heart bypass surgery History of hernia repair 2x History of neck surgery Left carotid endarterectomy Family History Denies family history of Anesthesia complication Bleeding disorder Social History Smoking and tobacco status: never smoked Alcohol intake: never Data Anesthesia Cardiac Studies: No Data to Display
--- NOTE | 2021-06-13 14:25 | SC_ITS ---
WS: [id number] C-ARM RADIOGRAPHS CHEST; 2 IMAGES HISTORY: AICD placement COMPARISON: None available. Intraoperative imaging during AICD placement. Pacer wire noted over the heart. SC/C-arm FL for Pacemaker IMPRESSION: Intraoperative imaging during AICD.
[2021-06-13 15:04] LABS: Glucose Point of Care 191 mg/dL (70-110)
[2021-06-13 15:11] LABS: Add Urine Microscopic? YES; Bilirubin Urine 1+ (Negative); Blood Urine Neg (Negative); Glucose Urine UA 1+ (Normal); Ketones Urine Negative (Negative); Leukocyte Esterase Urine Trace (Negative); Nitrate Urine Negative (Negative); Protein Urine Neg (Negative); Specific Gravity, Urine 1.015 (1.005-1.030); Urine Appearance Clear (CLEAR); Urine Color Yellow (Yellow); Urobilinogen Urine Neg (Negative); pH Urine 5 (5-7)
[2021-06-13 15:26] LABS: Squamous Epithelial Cell Urine RARE /hpf (0-5)
[2021-06-13 15:27] LABS: Add Urine Culture? No; Bacteria Urine TRACE /hpf
[2021-06-13 15:32] LABS: Basophils % 0.5 %; Eosinophils # 0.1 10^3/uL (0.0-0.8); Eosinophils % 0.7 %; Hematocrit 36.8 % (42.0-52.0); Hemoglobin 12.1 g/dL (11.7-16.6); Lymphocytes # 2.9 10^3/uL (0.8-4.8); Lymphocytes % 33.7 %; Mean Corpuscular HGB Conc 32.9 g/dL (30.0-36.0); Mean Corpuscular Hemoglobin 30.1 pg (28.0-34.0); Mean Corpuscular Volume 91.5 fl (80-94); Monocytes # 0.6 10^3/uL (0.2-0.9); Monocytes % 7.3 %; Neutrophils # 4.87 10^3/uL (1.8-7.7); Neutrophils % 57.6 %; Nucleated Red Blood Cells % 0 %; Platelet Count 264 10^3/cmm (130-400); Red Blood Count 4.02 10^6/uL (4.1-5.3); Red Cell Distribution Width 13.5 % (12.1-15.1); White Blood Count 8.5 10^3/uL (4.0-10.0)
[2021-06-13 16:04] LABS: Alanine Aminotransferase 9 U/L (0-41); Albumin Level 4.6 g/dL (3.5-5.2); Alkaline Phosphatase 59 IU/L (40-130); Anion Gap 22.3 (5-19); Aspartate Amino Transferase 10 U/L (0-40); Blood Urea Nitrogen 18 mg/dL (8-23); Calcium 9.6 mg/dL (8.5-10.5); Carbon Dioxide 20 mmol/L (22-29); Chloride 102 mmol/L (98-107); Creatinine Clr Calc Pharmacy 65.0179; Globulin 2.6 g/dL (1.3-4.6); Glucose 209 mg/dL (65-115); Osmolality Calculated 298 mOsm/kg (285-295); Potassium 4.3 mmol/L (3.5-5.1); Sodium 140 mmol/L (136-145); Total Bilirubin 0.4 mg/dL (0.15-1.2); Total Protein 7.2 g/dL (6.6-8.7)
--- NOTE | 2021-06-13 17:15 | W.PM.OPSUD ---
Surgery/Procedure H&P Update DATE OF PROCEDURE: June 13, 2021 DATE H&P PERFORMED: 05/17/21 H&P UPDATE INFORMATION: I have reviewed H&P completed within last 30 days, I have examined patient prior to procedure and No changes to prior documentation PREOP DIAGNOSIS: Cardiomyopathy PLANNED PROCEDURE: Operation Date: 06/13/21 15:40 Proposed Procedures p Defibrillator Placement(Not Applicable) - Corky Keller MD
[2021-06-13 17:42] LABS: Magnesium 0.9 mg/dL (1.7-2.3)
[2021-06-13] MEDS: magnesium sulfate premix 2 GM/50 ML PIGGYBACK IV (18:05)
[2021-06-13] MEDS: ceFAZolin 1,000 mg SDV 1000 MG IRRIGATION ×2 (18:13→18:40)
--- NOTE | 2021-06-13 19:36 | XR_ITS ---
WS: [id number] PORTABLE CHEST HISTORY: Defibrillator placement COMPARISON: 02/09/2021 Status post CABG. Single lead defibrillator is present through the LEFT subclavian vein. Minimal atelectasis at the lung bases. No dense consolidation or pneumonia. No pleural effusion or pn eumothorax. Cardiac size: Normal. Mediastinum/Aorta: Mild atherosclerosis aorta. No osseous abnormality seen. XR/XR chest 1V portable [id number] IMPRESSION: 1. Interval insertion of a LEFT subclavian defibrillator. No complications are evident. 2. Minimal atelectasis at the lung bases. 3. CABG.
--- NOTE | 2021-06-13 20:06 | P.OP_ITS ---
Operative Report Date of procedure: June 13, 2021 Pre-op Diagnosis: Cardiomyopathy Post-op diagnosis: same Procedure Done: Automatic implantable cardiac defibrillator placement Implants: AICD generator and ventricular lead Pathology: none sent Surgeon: Corky Keller Anesthesia: MAC and Local Complications: None: Post procedure chest x-ray pending Condition: stable Disposition: PACU Brief History: Mr. Echeverria is a 76-year-old gentleman with cardiomyopathy and prior history for coronary artery disease status post CABG about 16 years ago. He most recently underwent cardiac catheterizations and had a drug-eluting stent placed in his saphenous vein graft to the OMB vessel. His ejection fraction is 30% by echocardiogram and he has moderate mitral regurgitation. AICD i mplantation has been recommended by Dr. Reddy. After period of reflection, Mr. Echeverria does wish to proceed with AICD implant. Details the risk of the procedure were carefully and frankly discussed. Proper consents have been reviewed and signed. Procedure: Procedure: Mr. Echeverria was taken to the OR suite and placed in the supine position over a shoulder roll. He received conscious sedation with continuous anesthesia monitoring by. His entire chest was sterilely prepped and draped. 1% lidocaine was infiltrated in the left subclavicular region. While in Trendelenburg position, utilizing modified seldinger technique, a guidewire was placed in the left subclavian vein. This was confirmed in position by fluoroscopy. Next, after infiltration with lidocaine, a subcutaneous pocket was created beginning from the exit point of the guidewire and extending laterally and inferiorly. Cautery was utilized to create the pocket just above the pector torrey musculature. Hemostasis was confirmed. An antibiotic-soaked sponge was placed in the wound. A dilator and tear-away sheath was placed over the guidewire and advanced under fluoroscopy. Guidewire and dilator were removed. Next using a combination of curved and straight stylettes, the right ventricular lead was placed in position by fluoroscopy. The distal screw was extended. Interrogation was then performed confirming appropriate parameters. The tear- away sheath was then removed and the ventricular lead was sewn to the floor of the subcutaneous pocket. Generator was brought into the field, and after confirmation of hemostasis in the subcutaneous pocket, the leads was connected to the generator with appropriate capture. The entire system was interrogated by fluoroscopy. Lead and generator were secured in the pocket. Sponge and needle count was correct. The wound was then closed in 2 layers of 3-0 Vicryl suture. Skin was reapproximated in a subcuticular manner with 4-0 Monocryl suture. A pressure dressing was applied. The left arm was placed in a sling. Mr. Echeverria had equal breath sounds bilaterally. He was then transferred to the PACU, where chest x-ray is currently pending. We did speak with his daughter by phone who is currently at work. She understands that he will be admitted overnight for continued observation, postoperative antibiotics, and reinter rogation of his AICD system in the morning. Following are the specifics of this system: Right ventricular lead is 62 cm and model 6935M. Serial number [id number] Ventricular lead had sensing of 7.7 mV with an impedance of 870 ohms. Threshold was 1.5 V Nine [employer] AICD generator generator: Model # [id number] Serial # [id number] VVI-40 VF-200 VT-171 Treatment 1-6 35 J
--- NOTE | 2021-06-13 21:03 | PC.NURSE ---
TRANSFER FROM OR Pt received from OR per shahnaz at 2024. Transferred to bed. Alert & oriented. Denied pain. Dessing to left upper hest D&I, Immobilizer in place to left arm. information systems project manager applied. IV fluids infusing at 75ml/hr rate
[2021-06-13 21:14] LABS: Glucose Point of Care 147 mg/dL (70-110)
[2021-06-13] MEDS: tamsulosin 0.4 mg Capsule PO (21:36)
[2021-06-13] MEDS: sodium chloride 0.45% 1,000 ML 75 ML IV (21:36)
[2021-06-13] MEDS: mirtazapine 30 mg Tablet 15 MG PO (21:36)
[2021-06-13] MEDS: insulin lispro 100 unit/1 mL SUBCUT (21:37)
[2021-06-13] MEDS: ferrous sulfate EC 325 mg Tablet PO (21:37)
[2021-06-14 01:30] VITALS: BP 112/60; PULSE 70; RESP 16; TEMP 36.9; O2SAT 92
[2021-06-14 02:28] LABS: Magnesium 1.2 mg/dL (1.7-2.3)
[2021-06-14 03:30] VITALS: BP 110/60; PULSE 68; RESP 16; TEMP 37.1; O2SAT 92
[2021-06-14] MEDS: HYDROcodone-acetaminophen 5-325 mg Tablet 1 TAB PO (04:50)
[2021-06-14] MEDS: thiamine 100 mg Tablet PO (04:50)
[2021-06-14 06:00] VITALS: PULSE 68
--- NOTE | 2021-06-14 06:12 | PC.NURSE ---
SHIFT SUMMARY Has rested well since received from OR last evening. Has received po Hydrocodone for pain. Dressing to pacemaker site L upper chest remained D&I until removed with pacemaker check done this morning. Telfa placed over incision. Pacemaker eval was reported by phone and faax to be without any abnormalities. IV fluids infusing at 75ml/hr rate. Receiving IV postop antibiotics as ordered. Taking po fluids well and voiding per urinal.
[2021-06-14 06:41] LABS: Glucose Point of Care 120 mg/dL (70-110)
--- NOTE | 2021-06-14 06:45 | PC.NURSE ---
MG LEVEL Dr Keller aware of Mag level 1.2 this am and is going to order IV Mag to be given prior to discharge today
--- NOTE | 2021-06-14 07:44 | P.DS_ITS ---
Discharge Providers Date of Admission: 06/13/21 18:49 Date of Discharge: June 14, 2021 Attending Provider at Admission: Corky Keller MD Attending Provider at Discharge: Corky Keller MD Primary Care Provider: Huan De La Rosa DO Hospital Course Hospital Course Mr. Echeverria is a pleasant 76-year-old gentleman referred to our service by Dr. Reddy to consider AICD implantation secondary to ischemic cardiomyopathy. He has had previous cardiac catheterizations and most recently had a drug-eluting stent placed and a saphenous vein graft to the OMB vessel. His ejection fraction has never been above 30% most recently and he has moderate mitral regurgitation. After careful discussion with Dr. Reddy, he agreed for AICD implantation. He has known hypomagnesemia with a magnesium level of 0.9 upon presentation. He did receive 2 g of magnesium prior to the procedure and this was discussed with Dr. Montilla who recommended that we proceed. He was electively admitted on June 13 and underwent single lead AICD placement. Postoperatively he convalesced on the rodrigues where he has done well. Only modest postoperative discomfort. System interrogation this morning reveals appropriate functioning. Surgical dressing was removed. His incision is clean, dry, and intact. Postoperative dressing was applied. Activity limitations was discussed with him. Magnesium this morning is noted to be 1.2. He will receive another 2 g of IV magnesium prior to discharge. He is already on oral magnesium replacement. He will be discharged to home today in stable condition for follow-up and [facility] in 1 week. Physical Exam Chest: COMMONS NORMALS: normal inspection of the chest OTHER: Surgical incision is clean, dry, and intact. There is no evidence for fluid collection or drainage. There is no erythema. Resp: COMMON NORMALS: normal respiratory effort, No use of accessory muscles and clear to auscultation bilaterally EFFORT & INSPECTION: Yes able to speak in complete sentences and Yes symmetric chest movement AUSCULTATION: clear to auscultation bilaterally Cardio: COMMON NORMALS: regular rate, regular rhythm and No rub (Cardio) RATE: regular rate RHYTHM: regular rhythm HEART SOUNDS: Murmur heart sound present systolic (He does have a modest murmur of mitral regurgitation which is known.) Location: apex Extremity: COMMON NORMALS: no clubbing, cyanosis or edema Discharge Data Data Completed and Pending: Pending at discharge Category Date Time Status XR chest 1V keesha ble [id number] Routine Exams 06/13/21 19:36 Taken Magnesium Stat Lab 06/13/21 17:00 Uncollected Labs from last 24 hours 06/14/21 06/14/21 06/13/21 06:25 01:59 21:11 WBC RBC Hgb Hct MCV MCH MCHC RDW Plt Count MPV Neut % (Auto) Lymph % (Auto) [place] % (Auto) Eos % (Auto) Baso % (Auto) Neut # (Auto) Lymph # (Auto) [place] # (Auto) Eos # (Auto) Baso # (Auto) Nucleated RBC % (a uto) Nucleated RBCs # Sodium Potassium Chloride Carbon Dioxide Anion Gap BUN Creatinine GFR Calculation Glucose POC Glucose 120 H 147 H Calculated Osmolal ity Calcium Magnesium 1.2 L Total Bilirubin AST ALT Alkaline Phosphata se Total Protein Albumin Globulin Urine Color Urine Appearance Urine pH Ur Specific Gravit y Urine Protein Urine Glucose (UA) Urine Ketones Urine Blood Urine Nitrate Urine Bilirubin Urine Urobilinogen Ur Leukocyte Clarice ase Urine RBC Urine WBC Ur Squamous Epith Cells Amorphous Sediment Urine Bacteria 06/13/21 06/13/21 06/13/21 15:01 14:50 14:50 WBC RBC Hgb Hct MCV MCH MCHC RDW Plt Count MPV Neut % (Auto) Lymph % (Auto) [place] % (Auto) Eos % (Auto) Baso % (Auto) Neut # (Auto) Lymph # (Auto) [place] # (Auto) Eos # (Auto) Baso # (Auto) Nucleated RBC % (a uto) Nucleated RBCs # Sodium 140 Potassium 4.3 Chloride 102 Carbon Dioxide 20 L Anion Gap 22.3 H BUN 18 Creatinine 0.9 GFR Calculation Not Reportable Glucose 209 H POC Glucose 191 H Calculated Osmolal ity 298 H Calcium 9.6 Magnesium 0.9 L Total Bilirubin 0.4 AST 10 ALT 9 Alkaline Phosphata se 59 Total Protein 7.2 Albumin 4.6 Globulin 2.6 Urine Color Urine Appearance Urine pH Ur Specific Gravit y Urine Protein Urine Glucose (UA) Urine Ketones Urine Blood Urine Nitrate Urine Bilirubin Urine Urobilinogen Ur Leukocyte Clarice ase Urine RBC Urine WBC Ur Squamous Epith Cells Amorphous Sediment Urine Bacteria 06/13/21 06/13/21 14:50 14:30 WBC 8.5 RBC 4.02 L Hgb 12.1 Hct 36.8 L MCV 91.5 MCH 30.1 MCHC 32.9 RDW 13.5 Plt Count 264 MPV 11.0 H Neut % (Auto) 57.6 Lymph % (Auto) 33.7 [place] % (Auto) 7.3 Eos % (Auto) 0.7 Baso % (Auto) 0.5 Neut # (Auto) 4.87 Lymph # (Auto) 2.9 [place] # (Auto) 0.6 Eos # (Auto) 0.1 Baso # (Auto) 0.0 Nucleated RBC % (a uto) 0 Nucleated RBCs # 0.0 Sodium Potassium Chloride Carbon Dioxide Anion Gap BUN Creatinine GFR Calculation Glucose POC Glucose Calculated Osmolal ity Calcium Magnesium Total Bilirubin AST ALT Alkaline Phosphata se Total Protein Albumin Globulin Urine Color Yellow Urine Appearance Clear Urine pH 5 Ur Specific Gravit y 1.015 Urine Protein Neg Urine Glucose (UA) 1+ H Urine Ketones Negative Urine Blood Neg Urine Nitrate Negative Urine Bilirubin 1+ H Urine Urobilinogen Neg Ur Leukocyte Clarice ase Trace H Urine RBC None Urine WBC 5-10 H Ur Squamous Epith Cells Rare Amorphous Sediment Not Reportable Urine Bacteria Trace Vitals: Last Vital Signs Temp 98.8 F 06/14/21 03:30 Pulse 68 06/14/21 06:00 Resp 16 06/14/21 03:30 BP 110/60 06/14/21 03:30 Pulse Ox 92 06/14/21 03:30 Discharge Plan Discharge Patient Disposition: Home Condition: Stable Prescriptions: New hydrocodone-acetaminophen 5-325 mg Tablet 1 tab PO Q6H PRN (Reason: Moderate To Severe Pain) Qty: 15 RF: 0 sulfamethoxazole-trimethoprim [Bactrim DS] 800-160 mg tablet 1 tab PO DAILY 5 Days Qty: 10 RF: 0 Continued atorvastatin 80 mg tablet 40 mg PO BEDTIME RF: 0 cholecalciferol (vitamin D3) 25 mcg (1,000 unit) capsule 25 mcg PO QAM RF: 0 omega-3 fatty acids [Fish Oil Concentrate] 1,000 mg capsule 1,000 mg PO BEDTIME RF: 0 metformin 1,000 mg tablet 1,000 mg PO BID RF: 0 mirtazapine 30 mg tablet 15 mg PO BEDTIME RF: 0 thiamine HCl (vitamin B1) 100 mg tablet 100 mg PO QAM RF: 0 spironolactone [Aldactone] 25 mg tablet 25 mg PO DAILY Qty: 90 RF: 3 ferrous sulfate 325 mg (65 mg iron) Tablet 325 mg PO BEDTIME RF: 0 omeprazole 40 mg Capsule,Delayed Release(Dr/Ec) 40 mg PO QAM RF: 0 docusate sodium [Colace] 100 mg Capsule 100 mg PO BEDTIME PRN (Reason: Constipation) RF: 0 clopidogrel 75 mg Tablet 75 mg PO DAILY Qty: 30 RF: 11 aspirin 81 mg Tablet,Delayed Release (Dr/Ec) 81 mg PO DAILY Qty: 30 RF: 0 tamsulosin 0.4 mg Capsule 0.4 mg PO BEDTIME Qty: 30 RF: 0 lisinopril 2.5 mg tablet 2.5 mg PO DAILY Qty: 30 RF: 0 metoprolol succinate [Toprol XL] 100 mg tablet extended release 24 hr 100 mg PO DAILY Qty: 30 RF: 0 nitroglycerin 0.4 mg tablet, sublingual 0.4 mg sublingual Q5M PRN (Reason: chest pain) Qty: 20 RF: 0 magnesium L-lactate [Magtab] 84 mg tablet extended release 84 mg PO DAILY RF: 0 Discharge Orders: Discharge Order (Routine); Ordered 06/14/21 Ordered By: Corky Keller Referrals: [facility] [Provider Group] - 1 week ([facility]) Discharge Diet: Usual diet Discharge Activity: Limit activity as instructed Patient Instructions: Opioid Safety Activity Restrictions/Additional Instructions: Do not raise left arm above eye level for the next week No heavy lifting or pulling x2 weeks No swimming or tub baths x2 weeks Remove surgical dressing in 2 days May begin shower in 4 days Take antibiotics as prescribed until completed Report any redness, swelling, fever, increased pain or incision drainage Please call clinic for any concerns. Discharge Attestations Time Spent in Discharge Care*: less than 30 min Specific Discharge Activities: educating patient, discussing with bilingual patient support caseworker/social workers/dc planners, documenting/other paperwork and evaluating patient/reviewing data Status at Discharge: Cognitive status at discharge: cognitively intact , Behavioral status at discharge: cooperative , Functional status at discharge: independent ambulation Overall status at discharge: patient is progressing back to baseline Quality Metrics Clinical Quality Measures During this hospital stay, did patient experience: None Coding Level of Care Code Acute Chg FW DC note
[2021-06-14 08:00] VITALS: BP 107/61; PULSE 80; RESP 16; TEMP 36.9; O2SAT 93
[2021-06-14] MEDS: metoprolol succinate ER (24 HR) 100 mg Tablet PO (08:31)
[2021-06-14] MEDS: spironolactone 25 mg Tablet PO (08:31)
[2021-06-14] MEDS: magnesium sulfate premix 2 GM/50 ML PIGGYBACK IV (08:31)
[2021-06-14] MEDS: lisinopril 2.5 mg Tablet PO (08:31)
[2021-06-14] MEDS: pantoprazole DR 40 mg Tablet PO (08:32)
[2021-06-14] MEDS: aspirin 81 mg EC Tablet PO (08:32)
--- NOTE | 2021-06-14 10:15 | PC.NURSE ---
THIS NURSE CONTACTED PATIENT PHARMACY AND CLARIFIED BACTRIM ORDER SHOULD READ BID INSTEAD OF DAILY.
[2021-06-14 11:54] VITALS: BP 132/62; PULSE 83; RESP 16; TEMP 37; O2SAT 96
[2021-06-14 11:57] LABS: Glucose Point of Care 326 mg/dL (70-110)
[2021-06-14 13:11] VITALS: BP 132/62; PULSE 83; RESP 16; TEMP 37; O2SAT 96
== END 2021-06-14 13:12 | disposition home or self-care (01) ==
LOC: MEDSURG 06-14 07:44
PROVIDERS: Internal Medicine Cardiovascular Disease; Admitting Provider Thoracic Surgery (Cardiothoracic Vascular Surgery); PCP Emergency Medicine Emergency Medical Services; Visit Provider Thoracic Surgery (Cardiothoracic Vascular Surgery)
PROC: 0JH608Z Insertion of Defibrillator Generator into Chest Subcutaneous Tissue and Fascia, Open Approach (ICD-10-PCS; CPT 33249; principal; 2021-06-13 15:30)
DX: I25.5 Ischemic cardiomyopathy (principal); I21.4 Non-ST elevation (NSTEMI) myocardial infarction; I25.810 Atherosclerosis of coronary artery bypass graft(s) without angina pectoris; I50.20 Unspecified systolic (congestive) heart failure; I10 Essential (primary) hypertension; I77.9 Disorder of arteries and arterioles, unspecified; E11.9 Type 2 diabetes mellitus without complications; K29.70 Gastritis, unspecified, without bleeding; E78.5 Hyperlipidemia, unspecified; G47.33 Obstructive sleep apnea (adult) (pediatric); I11.0 Hypertensive heart disease with heart failure; Z79.82 Long term (current) use of aspirin; Z79.84 Long term (current) use of oral hypoglycemic drugs; Z95.1 Presence of aortocoronary bypass graft
CPT/HCPCS: 33249; 36415; 36416; 71045; 76000; 80053; 81001; 82962; 83735; 85025; 96372; C1722; C1777; G0378; J0690; J1815; J2704; J3010; J3475

== ENCOUNTER → 2021-12-23 10:41 | Outpatient (BNVA) | payer OTHER, SELFPAY | PROVIDERS: PCP Emergency Medicine Emergency Medical Services; Visit Provider Internal Medicine Cardiovascular Disease | DX: I11.0 Hypertensive heart disease with heart failure (principal); I50.23 Acute on chronic systolic (congestive) heart failure; I25.810 Atherosclerosis of coronary artery bypass graft(s) without angina pectoris; Z95.810 Presence of automatic (implantable) cardiac defibrillator | CPT/HCPCS: 93282; 99214 ==

== ENCOUNTER → 2022-08-11 08:20 | Outpatient (BNVA) | payer OTHER, SELFPAY | PROVIDERS: PCP Emergency Medicine Emergency Medical Services; Visit Provider Internal Medicine Cardiovascular Disease | DX: I11.0 Hypertensive heart disease with heart failure (principal); I50.23 Acute on chronic systolic (congestive) heart failure; I25.810 Atherosclerosis of coronary artery bypass graft(s) without angina pectoris; E78.2 Mixed hyperlipidemia; I77.9 Disorder of arteries and arterioles, unspecified; Z95.810 Presence of automatic (implantable) cardiac defibrillator | CPT/HCPCS: 36415; 80053; 80061; 83721; 83735; 83880; 85025; 93282; 99214; Q3014 ==

== ENCOUNTER → 2023-03-15 09:55 | Outpatient (BNVA) | payer OTHER, SELFPAY | PROVIDERS: PCP Emergency Medicine Emergency Medical Services; Visit Provider Internal Medicine Cardiovascular Disease | DX: Z45.02 Encounter for adjustment and management of automatic implantable cardiac defibrillator (principal) | CPT/HCPCS: 93296 ==

== ENCOUNTER → 2023-06-15 11:20 | Outpatient (BNVA) | payer OTHER, SELFPAY | PROVIDERS: PCP Emergency Medicine Emergency Medical Services; Visit Provider Internal Medicine Cardiovascular Disease | DX: Z45.02 Encounter for adjustment and management of automatic implantable cardiac defibrillator (principal) | CPT/HCPCS: 93296 ==

== ENCOUNTER → 2023-09-19 15:53 | Outpatient (BNVA) | payer OTHER, SELFPAY | PROVIDERS: PCP Emergency Medicine Emergency Medical Services; Visit Provider Internal Medicine | DX: Z45.02 Encounter for adjustment and management of automatic implantable cardiac defibrillator (principal) | CPT/HCPCS: 93296 ==

== ENCOUNTER → 2023-11-15 14:17 | Outpatient (BNVA) | payer OTHER, SELFPAY | PROVIDERS: PCP Emergency Medicine Emergency Medical Services; Visit Provider Internal Medicine Cardiovascular Disease | DX: I25.810 Atherosclerosis of coronary artery bypass graft(s) without angina pectoris (principal); I65.21 Occlusion and stenosis of right carotid artery; I25.5 Ischemic cardiomyopathy; I11.0 Hypertensive heart disease with heart failure; I50.22 Chronic systolic (congestive) heart failure; Z95.810 Presence of automatic (implantable) cardiac defibrillator; E78.2 Mixed hyperlipidemia; E09.9 Drug or chemical induced diabetes mellitus without complications; Z79.84 Long term (current) use of oral hypoglycemic drugs | CPT/HCPCS: 36415; 80048; 83880; 99215 ==

== ENCOUNTER 2023-11-23 13:10 | Outpatient (CLI) | payer OTHER, SELFPAY ==
--- NOTE | 2023-11-23 13:15 | USCV_ITS ---
Milo Echeverria Age: 78 Gender: M : 1945 Exam Date: 11/23/2023 13:44 Ordering Phys: Artur Orosco MD ([email or web address]) Technologist: CT [place]am Location[place] [facility] [place]ication: cea Risk Factors: Previous Vascular Surgery: Right Brachial BP: / Left Brachial BP: / Right Left Velocity (cm/s) Spectral Plaque Velocity (cm/s) Spectral Plaque Syst/Diast Broadening Syst/Diast Broadening 60.80/ 11.50 Prox CCA 67.00 / 12.80 63.10/ 12.50 Mid CCA 79.20 / 16.10 59.60/ 11.40 Distal CCA 70.20 / 17.90 42.40/ 10.10 Prox ICA 52.10 / 10.60 56.70/ 13.50 Mid ICA 61.10 / 15.20 69.20/ 16.90 Distal ICA 59.00 / 13.10 64.60 ECA 66.50 1.20 ICA/CCA 0.90 Antegrade Vertebral Antegrade 47.40/ 6.90 cm/s 37.60/ 7.00 cm/s Tri Subclavian Tri 78.60 110.7 0 CONCLUSIONS Right ICA stenosis <50%. Mild atheromatous plaque right carotid bulb/ICA. Left ICA stenosis <50%. Mild atheromatous plaque left carotid bulb/ICA. Intimal thickening in the common carotid arteries and internal carotid arteries bilaterally. Normal antegrade Doppler flow noted in the right vertebral artery. Normal antegrade Doppler flow noted in the left vertebral artery. Andre Jack MD (Electronically Signed) Final Date: 23 November 2023 15:21 S
== END 2023-11-23 13:11 | disposition home or self-care (01) ==
LOC: RAD 13:11
PROVIDERS: PCP Emergency Medicine Emergency Medical Services; Visit Provider Internal Medicine Cardiovascular Disease
DX: I77.9 Disorder of arteries and arterioles, unspecified (principal); I65.23 Occlusion and stenosis of bilateral carotid arteries
CPT/HCPCS: 93880

== ENCOUNTER → 2023-12-27 11:16 | Outpatient (BNVA) | payer OTHER, SELFPAY | PROVIDERS: PCP Emergency Medicine Emergency Medical Services; Visit Provider Nurse Practitioner Family | DX: I11.0 Hypertensive heart disease with heart failure (principal); I50.23 Acute on chronic systolic (congestive) heart failure; I25.810 Atherosclerosis of coronary artery bypass graft(s) without angina pectoris | CPT/HCPCS: 80048; 83880; 99214 ==

== ENCOUNTER → 2024-05-14 13:59 | Outpatient (BNVA) | payer OTHER, SELFPAY | PROVIDERS: PCP Emergency Medicine Emergency Medical Services; Visit Provider Internal Medicine Cardiovascular Disease | DX: I25.5 Ischemic cardiomyopathy (principal); I11.0 Hypertensive heart disease with heart failure; I50.23 Acute on chronic systolic (congestive) heart failure; E78.2 Mixed hyperlipidemia; I25.810 Atherosclerosis of coronary artery bypass graft(s) without angina pectoris; Z95.810 Presence of automatic (implantable) cardiac defibrillator; I65.21 Occlusion and stenosis of right carotid artery; E11.9 Type 2 diabetes mellitus without complications; Z79.84 Long term (current) use of oral hypoglycemic drugs; R06.02 Shortness of breath | CPT/HCPCS: 80048; 83880; 99214 ==

== ENCOUNTER → 2024-06-18 10:47 | Outpatient (BNVA) | payer OTHER, SELFPAY | PROVIDERS: PCP Emergency Medicine Emergency Medical Services; Visit Provider Nurse Practitioner Family | DX: I50.23 Acute on chronic systolic (congestive) heart failure (principal); I11.0 Hypertensive heart disease with heart failure; I25.10 Atherosclerotic heart disease of native coronary artery without angina pectoris; Z95.810 Presence of automatic (implantable) cardiac defibrillator | CPT/HCPCS: 99214 ==

== ENCOUNTER 2024-07-08 09:50 | Outpatient (CLI) | payer OTHER, SELFPAY ==
--- NOTE | 2024-07-08 09:54 | USCV_ITS ---
Juwan Milo Age: 79 Gender: M : 1945 Exam Date: 07/08/2024 10:35 Ordering Phys: Artur Orosco MD ([email or web address]) Technologist: [place] Exam Location: [facility] – [place] Indication: cardiomyopathy chf BP: / HR: 74 Rhythm: Other Technical Quality: Adequate MEASUREMENTS (Male / Female) Normal Values 2D ECHO LV Diastolic Diameter PLAX 5.3 cm 4.2 - 5.9 / 3.9 - 5.3 cm IVS Diastolic Thickness 1.1 cm 0.6 - 1.0 / 0.6 - 0.9 cm IVS Systolic Thickness 1.5 cm LVPW Diastolic Thickness 1.9 cm 0.6 - 1.0 / 0.6 - 0.9 cm LVPW Systolic Thickness 1.5 cm LVOT Diameter 2.0 cm LV Ejection Fraction 2D Teich 25.0 % LV Ejection Fraction MOD 4C 43.3 % LV Ejection Fraction MOD 2C 46.7 % LV Ejection Fraction 2C AL 49.7 % LA Diameter 3.3 cm RA Systolic Volume 4C AL 33.7 ml RA Systolic Volume 4C MOD 32.4 ml LA Sys Volume AL 41.6 cm cubed LA Sys Volume Index AL 22.9 cm cubed/m squared Aorta at Sinotubular Diameter 3.1 cm M-MODE LA Ao Ratio MM 1.2 AV Cusp Separation MM 1.5 cm DOPPLER AV Peak Velocity 114.0 cm/s LVOT Peak Velocity 89.0 cm/s AV Area Cont Eq vti 2.3 cm squared AV Area Cont Eq pk 2.5 cm squared TR Peak Velocity 106.0 cm/s TR Peak Gradient 4.5 mmHg TR Mean Velocity 72.0 cm/s TR Mean Gradient 2.4 mmHg TR Velocity Time Integral 31.8 cm TV Peak E Velocity 52.0 cm/s FINDINGS Left Ventricle Diffuse hypokinesia of the left ventricle with an ejection fraction of 43%. Mildly dilated LV cavity Right Ventricle Pacemaker/defibrillator wire in the right ventricle Right Atrium Pacemaker/defibrillator wire in the right ventricle Left Atrium Mildly increased left atrial size. Mitral Valve At least moderate mitral regurgitation Aortic Valve Trace aortic valve regurgitation. Tricuspid Valve Trace tricuspid valve regurgitation. Pulmonic Valve Pulmonic valve not well visualized. Pericardium Normal pericardium without effusion. Aorta Normal ascending aorta dimension. IVC Inferior vena cava not visualized. CONCLUSIONS Diffuse hypokinesia of the left ventricle with an ejection fraction of 43%. Mildly dilated LV cavity. Mildly increased left atrial size. Pacemaker/defibrillator wire in the right ventricle. Trace aortic valve regurgitation. At least moderate mitral regurgitation. Trace tricuspid valve regurgitation. The PA pressure could not be calculated because of the poor Doppler signals There is no pericardial effusion. Pacemaker/defibrillator wire in the right ventricle and in the right atrium. Compared to the study from 04/19/2021, there is significant improvement in the LV ejection fraction from 30% to 43% Dr Artur Orosco MD [facility] (Electronically Signed) Final Date: 19 July 2024 08:41 S
== END 2024-07-08 09:51 | disposition home or self-care (01) ==
PROVIDERS: PCP Nurse Practitioner; Visit Provider Internal Medicine Cardiovascular Disease
DX: I34.0 Nonrheumatic mitral (valve) insufficiency (principal); I50.1 Left ventricular failure, unspecified; R06.09 Other forms of dyspnea; Z95.0 Presence of cardiac pacemaker
CPT/HCPCS: 93306

== ENCOUNTER → 2024-07-17 10:50 | Outpatient (BNVA) | payer OTHER, SELFPAY | PROVIDERS: PCP Nurse Practitioner; Visit Provider Nurse Practitioner Family | DX: I11.0 Hypertensive heart disease with heart failure (principal); I50.23 Acute on chronic systolic (congestive) heart failure | CPT/HCPCS: 36415; 80048; 83880; 99214 ==

== ENCOUNTER → 2024-12-11 11:11 | Outpatient (BNVA) | payer OTHER, SELFPAY | PROVIDERS: PCP Nurse Practitioner; Visit Provider Internal Medicine Cardiovascular Disease | DX: I25.5 Ischemic cardiomyopathy (principal); Z95.810 Presence of automatic (implantable) cardiac defibrillator; E78.2 Mixed hyperlipidemia; I25.810 Atherosclerosis of coronary artery bypass graft(s) without angina pectoris; I65.21 Occlusion and stenosis of right carotid artery; I11.0 Hypertensive heart disease with heart failure; I50.20 Unspecified systolic (congestive) heart failure | CPT/HCPCS: 99214 ==

== ENCOUNTER 2024-12-18 13:06 | Outpatient (CLI) | payer OTHER, SELFPAY ==
--- NOTE | 2024-12-18 13:07 | CTR_ITS ---
PROCEDURE INFORMATION: Exam: CT Abdomen And Pelvis Without And With Contrast Exam date and time: 12/18/2024 1:20 PM Age: 79 years old Clinical indication: Other: Gross hematuria; Prior surgery; Surgery date: 6+ months; Surgery type: Hernia; HX of prostate cancer TECHNIQUE: Imaging protocol: Computed tomography of the abdomen and pelvis without and with contrast. Radiation optimization: All CT scans at this facility use at least one of these dose optimization techniques: automated exposure control; mA and/or kV adjustment per patient size (includes targeted exams where dose is matched to clinical indication); or iterative reconstruction. Contrast material: OMNI 350; Contrast volume: 100 ml; Contrast route: INTRAVENOUS (IV); COMPARISON: CR XR chest 1V portable [id number] 06/13/2021 7:58 PM RADIATION DOSE METRICS: Total DLP (mGy-cm): 584.09 FINDINGS: Lungs: Chronic pleural thickening and calcification involves the left lung base. Liver: Normal. No mass. Gallbladder and biliary ducts: Normal. No calcified stones. No ductal dilation. Pancreas: Normal. No ductal dilation. Spleen: Normal. No splenomegaly. Adrenal glands: Normal. No mass. Kidneys and ureters: Normal. No hydronephrosis. Stomach and bowel: Unremarkable. No obstruction. No mucosal thickening. Appendix: No evidence of appendicitis. Intraperitoneal space: Unremarkable. No free air. No significant fluid collection. Vasculature: Unremarkable. No abdominal aortic aneurysm. Lymph nodes: Unremarkable. No enlarged lymph nodes. Urinary bladder: Unremarkable as visualized. Reproductive: The prostate gland is abnormally enlarged. Bones/joints: Unremarkable. No acute fracture. Soft tissues: Unremarkable. CT/CT abdomen pelvis wo/w [id number] IMPRESSION: Prostate enlargement
[2024-12-18] MEDS: iohexol 350 mg/mL 500 mL Btl (per mL) IV (13:29)
== END 2024-12-18 13:07 | disposition home or self-care (01) ==
PROVIDERS: PCP Nurse Practitioner; Visit Provider Nurse Practitioner
DX: Z01.89 Encounter for other specified special examinations (principal); N40.0 Benign prostatic hyperplasia without lower urinary tract symptoms; J92.9 Pleural plaque without asbestos; J98.4 Other disorders of lung
CPT/HCPCS: 74178

== ENCOUNTER → 2025-03-31 12:43 | Outpatient (BNVA) | payer OTHER, SELFPAY | PROVIDERS: PCP Nurse Practitioner; Visit Provider Internal Medicine | DX: Z45.02 Encounter for adjustment and management of automatic implantable cardiac defibrillator (principal) | CPT/HCPCS: 93296 ==

== ENCOUNTER → 2025-07-21 09:53 | Outpatient (BNVA) | payer OTHER, SELFPAY | PROVIDERS: PCP Nurse Practitioner; Visit Provider Internal Medicine Cardiovascular Disease | DX: I25.10 Atherosclerotic heart disease of native coronary artery without angina pectoris (principal); I42.9 Cardiomyopathy, unspecified; I10 Essential (primary) hypertension; E78.5 Hyperlipidemia, unspecified; I77.9 Disorder of arteries and arterioles, unspecified; Z95.1 Presence of aortocoronary bypass graft; Z95.810 Presence of automatic (implantable) cardiac defibrillator | CPT/HCPCS: 99214 ==